=== PATIENT | male | born 1955 | race Two or more races ===

== ENCOUNTER 2020-01-18 10:14 | Outpatient (REF) | payer MEDICARE, MEDICAID, SELFPAY | END 2020-01-18 10:15 | disposition home or self-care (01) | LOC: HO.LAB 10:14 | PROVIDERS: PCP Nurse Practitioner Family; Visit Provider Internal Medicine | DX: Z20.828 Contact with and (suspected) exposure to other viral communicable diseases (principal) | CPT/HCPCS: 87635 ==

== ENCOUNTER 2020-01-23 08:56 | Day surgery (SDC) | payer MEDICARE, MEDICAID, SELFPAY ==
[2020-01-16 11:27] VITALS: BMI 27.5
--- NOTE | 2020-01-18 09:01 | HO.ANESPROP2 ---
Documented by User: Marquita Meyers 01/22/20 12:54 HPI - Anesthesia Eval Consult details Narrative: 64yo M for EGD and Colonoscopy: GERD, screening 01/21/20: Pt reported contact with COVID + family member. [place] [facility] [place]. Has continued to have contact with COVID + family. Per Leta, pt to be re-tested DOS. Ordered. [facility] Past Medical History Medical History (Updated 01/23/20 @ 12:40 by Sandy Orourke) Asthma Back pain Diabetes Elevated cholesterol GERD (gastroesophageal reflux disease) HTN (hypertension) Hx of renal calculi Sleep apnea Surgical History Surgical History H/O colonoscopy History of esophagogastroduodenoscopy (EGD) Social History Social History Smoking Status: Never smoker Use of substances other than those prescribed or required for medical reasons: No Advance Directives Information Provided: No Recently lost weight without trying: No Meds Allergies Allergy/AdvReac Type Severity Reaction Status Date / Time oxycodone [From PERCOCET] Allergy Intermediate ITCHING, Verified 01/16/20 11:32 itch mercury spill clean-up kit Allergy Unknown Unknown Uncoded 01/16/20 11:32 Home Medications Medication Instructions Recorded Confirmed Type allopurinol 300 mg PO DAILY 01/16/20 01/16/20 History amlodipine 5 mg PO DAILY 01/16/20 01/16/20 History aspirin 81 mg PO DAILY 01/16/20 01/16/20 History atorvastatin 80 mg PO BEDTIME 01/16/20 01/16/20 History docusate sodium 100 mg PO DAILY 01/16/20 01/16/20 History fluticasone propion-salmeterol 1 inh INHALATION BID 01/16/20 01/16/20 History [Advair Diskus] insulin detemir U-100 [Levemir 6 unit SUBCUT BID 01/16/20 01/16/20 History Flexpen] lisinopril-hydrochlorothiazide 1 tab PO DAILY 01/16/20 01/16/20 History loratadine 10 mg PO DAILY 01/16/20 01/16/20 History metformin 1,000 mg PO QPM 01/16/20 01/16/20 History omeprazole 20 mg PO BID 01/16/20 01/16/20 History tamsulosin 0.4 mg PO BEDTIME 01/16/20 01/16/20 History Exam Exam Date and Time: January 18, 2020 0901 Height,Weight and Vital Signs: Height 5 ft 3 in Weight 70.5 kg Pertinent Lab Results Pertinent Lab Results: Laboratory Tests 09/14/19 09/14/19 17:43 17:43 WBC 10.3 Hgb 15.2 Hct 45.4 Plt Count 285 Sodium 139 Potassium 4.3 Chloride 105 BUN 23 H Creatinine 0.80 Assessment and Plan Assessment Anesthesia Assessment: Chart Reviewed Documented by User: Sandy Orourke 01/23/20 12:40 [facility] Past Medical History Medical History (Updated 01/23/20 @ 12:40 by Sandy Orourke) Asthma Back pain Diabetes Elevated cholesterol GERD (gastroesophageal reflux disease) HTN (hypertension) Hx of renal calculi Sleep apnea Family History Family history of problems with anesthesia: No Surgical History Surgical History H/O colonoscopy History of esophagogastroduodenoscopy (EGD) History of Problems with Anesthesia: No Social History Social History Smoking Status: Never smoker Use of substances other than those prescribed or required for medical reasons: No Advance Directives Information Provided: No Recently lost weight without trying: No Meds Allergies Allergy/AdvReac Type Severity Reaction Status Date / Time oxycodone [From PERCOCET] Allergy Intermediate ITCHING, Verified 01/16/20 11:32 itch mercury spill clean-up kit Allergy Unknown Unknown Uncoded 01/16/20 11:32 Home Medications Medication Instructions Recorded Confirmed Type allopurinol 300 mg PO DAILY 01/16/20 01/16/20 History amlodipine 5 mg PO DAILY 01/16/20 01/16/20 History aspirin 81 mg PO DAILY 01/16/20 01/16/20 History atorvastatin 80 mg PO BEDTIME 01/16/20 01/16/20 History docusate sodium 100 mg PO DAILY 01/16/20 01/16/20 History fluticasone propion-salmeterol 1 inh INHALATION BID 01/16/20 01/16/20 History [Advair Diskus] insulin detemir U-100 [Levemir 6 unit SUBCUT BID 01/16/20 01/16/20 History Flexpen] lisinopril-hydrochlorothiazide 1 tab PO DAILY 01/16/20 01/16/20 History loratadine 10 mg PO DAILY 01/16/20 01/16/20 History metformin 1,000 mg PO QPM 01/16/20 01/16/20 History omeprazole 20 mg PO BID 01/16/20 01/16/20 History tamsulosin 0.4 mg PO BEDTIME 01/16/20 01/16/20 History Exam Height,Weight and Vital Signs: Vital Signs Temp Pulse Resp BP Pulse Ox 01/23/20 11:40 97.4 F 67 16 129/86 94 Pertinent Lab Results Pertinent Lab Results: 01/23/20 09:20 SARS COV2 PCR INHOUSE Stat 01/23/20 11:24 Glucose, Whole Blood Routine 01/23/20 11:42 Lidocaine HCl 2 % MPF [Xylocaine 2 % MPF] 5 ml .ROUTE .STK-MED ONE propofoL [Diprivan] 200 mg IVPUSH .STK-MED ONE Laboratory Last Values POC Glucose 155 mg/dL (60-115) H 01/23/20 11:24 Coronavirus (PCR) NEGATIVE (Negative) 01/23/20 09:20 Airway Mallampati Class: III TM Dist: >3cm Neck ROM: Full Partial: Upper Heart: RRR Lungs: CTAB Assessment and Plan Assessment Anesthesia Assessment: Anesthesia Plan Discussed and Chart Reviewed Final Anesthetic Review NPO: Yes ASA Class: III Final Preanesthetic Review: No Changes in Pt Med Stat, Meds/Allgs Chart Reviewed, Consent Obtained/Reviewed and Anes Risks/Benef Reviewed Patient Risk: Intermediate Procedure Risk: Low Anesthetic Plan Anesthetic Plan: MAC: Disposition: Standard PACU
[2020-01-23 10:24] LABS: SARS COV2 PCR INHOUSE NEGATIVE (Negative)
[2020-01-23 11:27] LABS: Glucose, Whole Blood 155 mg/dL (60-115)
[2020-01-23 11:40] VITALS: BP 129/86; PULSE 67; RESP 16; TEMP 36.3; O2SAT 94
[2020-01-23] MEDS: Lactated Ringers 1,000 ML 100 ML IVCONT (11:47)
--- NOTE | 2020-01-23 12:31 | MHC.SHP ---
Pre-Procedural Eval Section A The patient is an INPATIENT: No The History & Physical has been completed within 30 days and I have reviewed it.: No Section B Chief Complaint: Gerd, Screening Details of Present Illness: Colon cancer screening, FH of colon cancer, chronic constipation Relevant Social History: None Present Medications: see Short Stay Collaborative assessment Medical History: Significant History ( Allergic rhinitis. Hypertension. Diabetes mellitus type 2. Asthma, moderate persistant without complication. obstructive sleep apnea (LILIANA) on CPAP. Dyslipidemia. GERD. Rectal bleeding. GERD (gastroesophageal reflux disease). Constipat) History of Previous Operations: Relevant previous surgery/procedure and date(s) (EGD & Colonoscopy-int/ ext hemorrhoids ( [facility] reports on file)- Dr. Barnard 05/2009) Allergies: Allergies Allergy/AdvReac Type Severity Reaction Status Date / Time oxycodone [From PERCOCET] Allergy Intermediate ITCHING, Verified 01/16/20 11:32 itch mercury spill clean-up kit Allergy Unknown Unknown Uncoded 01/16/20 11:32 Review of Systems Sugical H&P ROS: Negative: Constitution, Cardiovascular and Respiratory and Yes, Specify: Gastrointestinal (constipation) Exam Surgical H&P Exam: Normal: Heart, Normal: Lungs, Normal: Extremities and Normal: Abdomen Plan Diagnosis/Plan: Unchanged Patient has been examined and remains a candidate for the planned procedure
--- NOTE | 2020-01-23 12:44 | P.BOP_ITS ---
Brief Operative Note Date of procedure: 01/23/20 Pre-op diagnosis: Colon cancer screening, FH of colon cancer, GERD. Post-op diagnosis: other (GERD, Hiatal hernia, Gastritis, colon polyps, diverticulosis, hemorrhoids) Procedure: FLEXIBLE TRANSORAL UPPER GASTROINTESTINAL ENDOSCOPY WITH BIOPSIES AND COLONOSCOPY TILL CECUM WITH BIOPSIES AND SNARE POLYPECTOMY UPPER ENDOSCOPY WITH BIOPSIES Consent: Indications for the procedure and potential complications of bleeding, perforation, reaction to medications and missed diagnosis were discussed with the patient and informed consent was obtained. Instrument: Olympus GIF H 190 mid size upper endoscope Monitoring: Vital signs and clinical assessment, continuous EKG monitoring, Pulse oximetry, Carbon Dioxide monitoring and blood pressure monitoring were done throughout the procedure. Procedure: The patient was placed in the left lateral decubitis position and pre-procedure medications were administered and a bite block was placed. The endoscope was inserted into the mouth and advanced under direct vision to the third part of duodenum. A careful inspection was made as the upper endoscope was withdrawn including a retroflexed examination of the proximal stomach; Findings and interventions are described below. Findings: Larynx: Normal Esophagus: GE junction at 34 cms, small hiatal hernia 34 to 36 cms. No esophagitis. Irregular Z line - biopsied to check for Barretts. Stomach: Minimal gastric erythema. Biopsies were obtained. Grade 2 flap valve on retroflexed examination of the cardia. Duodenum: Normal bulb and descending duodenum Intervention: Biopsies as noted above COLONOSCOPY TILL CECUM WITH BIOPSIES AND SNARE POLYPECTOMY AND SUBMUCOSAL INJECTION Consent: Indications for the procedure and potential complications of bleeding, perforation, reaction to medications and missed diagnosis were discussed with the patient and informed consent was obtained. Instrument: Olympus PCF H 190 L variable stiffness pediatric colonoscope Monitoring: Vital signs and clinical assessment, intermittent blood pressure monitoring, continuous EKG monitoring, Pulse oximetry and Carbon Dioxide monitoring were done throughout the procedure. Colon withdrawl time was 27 minutes. Procedure: The patient was placed in the left lateral decubitis position and pre-procedure medications were administered. After a digital rectal examination of the ano-rectum, the video colonoscope was inserted into the rectum and advanced through the colon to the cecum. The colonoscope was slowly withdrawn in a retrograde panoramic fashion and the colon mucosa was carefully examined including a retroflexed view of the rectum. Findings and interventions are described below. Procedure Difficulty: Without difficulty Findings: Terminal Ileum: Not evaluated Cecum: A 4-5 mm flat polyp raised with 2 cc of Orise solution and removed with a cold bx. Ascending Colon: A 4-5 mm sessile polyp removed with a cold bx. Transverse Colon: A 6-7 mm sessile polyp removed with a cold snare. Descending Colon: Moderate diverticulosis Sigmoid Colon: A 5-6 mm sessile polyp removed with a cold snare and moderate diverticulosis Rectum: Normal Ano-rectum: Large internal hemorrhoids Colon preparation: good after copious irrigation Impression and Post Procedure Diagnosis: Endoscopy Findings: ESOPHAGUS: GE junction at 34 cms, small hiatal hernia 34 to 36 cms. No esophagitis. Irregular Z line with ? 1 cms tongue of possible Barretts - biopsied. STOMACH: Minimal gastritis. Colonoscopy Findings: Four small polyps removed Moderate diverticulosis seen in the left colon Large hemorrhoids on retroflexed exam. Plan: Await pathology results Patient has an appointment on 03/14/20 in the [facility] with Gerry Moraes M.D.-. Repeat Colonoscopy interval based on path results - in 3-5 years if polyps are adenomatous and 10 years if polyps are hyperplastic. Above findings were reviewed with the patient and colon polyps and diverticulosis handouts were given in the discharge area Surgeon: Gerry Moraes MD Anesthesia: MAC (Dr Person) Inventory Control Associate: Zoila Bliss Estimated blood loss (mL): 0 Pathology: other (A. Gastric antrum, B. Distal esophagus, C. Cecal polyp x 1, D. AC polyp x 1, E. TC polyp x 1, F. SC polyp x 1) Condition: stable Disposition: PACU
[2020-01-23 13:48] VITALS: BP 132/87; PULSE 71; RESP 18; TEMP 37.1; O2SAT 98
[2020-01-23 14:03] VITALS: BP 141/78; PULSE 62; RESP 14; O2SAT 97
--- NOTE | 2020-01-23 14:45 | HO.POSTANES ---
Post Anesthesia Evaluation Post Anesthesia Evaluation Vital Signs: Vital Signs Temp Pulse Resp BP Pulse Ox 01/23/20 14:03 98.8 F 62 14 141/78 H 97 01/23/20 13:48 98.8 F 71 18 132/87 98 01/23/20 11:40 97.4 F 67 16 129/86 94 Anesthesia: Monitored Mental Status: Awake Pain Control: Satisfactory Nausea/Vomiting: None Hydration: Adequate Anesthesia-Related Issues: No Anes. Related Issues
== END 2020-01-23 15:08 | disposition home or self-care (01) ==
PROVIDERS: Nurse Practitioner; PCP Nurse Practitioner Family; Visit Provider Internal Medicine Gastroenterology
PROC: (CPT 45385; principal; 2020-01-23 11:50)
DX: Z12.11 Encounter for screening for malignant neoplasm of colon (principal); Z80.0 Family history of malignant neoplasm of digestive organs; D12.0 Benign neoplasm of cecum; D12.2 Benign neoplasm of ascending colon; D12.3 Benign neoplasm of transverse colon; D12.5 Benign neoplasm of sigmoid colon; K57.30 Diverticulosis of large intestine without perforation or abscess without bleeding; K21.00 Gastro-esophageal reflux disease with esophagitis, without bleeding; K59.09 Other constipation; K29.50 Unspecified chronic gastritis without bleeding; K44.9 Diaphragmatic hernia without obstruction or gangrene; I10 Essential (primary) hypertension; K64.8 Other hemorrhoids; K64.4 Residual hemorrhoidal skin tags; Z20.828 Contact with and (suspected) exposure to other viral communicable diseases; G47.33 Obstructive sleep apnea (adult) (pediatric); J45.40 Moderate persistent asthma, uncomplicated; J30.9 Allergic rhinitis, unspecified; E78.5 Hyperlipidemia, unspecified; Z79.51 Long term (current) use of inhaled steroids; Z99.89 Dependence on other enabling machines and devices; Z88.8 Allergy status to other drugs, medicaments and biological substances; Z79.899 Other long term (current) drug therapy
CPT/HCPCS: 45385; 45380; 43239; 82947; 87635; 88305; 88342; J2765

== ENCOUNTER 2020-03-06 05:26 | Emergency (ER) | payer MEDICARE, MEDICAID, SELFPAY ==
[2020-03-06 05:37] VITALS: BP 151/65; PULSE 55; RESP 20; TEMP 36.4; O2SAT 100; BMI 29.2
--- NOTE | 2020-03-06 06:26 | ED_ITS ---
HPI - Abdominal Pain General Chief Complaint: Abdominal Pain Stated Complaint: ABD PAIN Time Seen by Provider: 03/06/20 06:25 Source: patient Mode of arrival: ambulatory Limitations: no limitations History of Present Illness HPI narrative: This 64-year-old male with history of diabetes who presents with lower abdominal pain that started at midnight and woke him from sleep it is not associated with fever, chills, nausea, vomiting, and patient has been able to urinate without difficulties. He denies any previous abdominal surgeries or urinary pain/ burning / frequency. Related Data Home Medications Medication Instructions Recorded Confirmed allopurinol 300 mg PO DAILY 01/16/20 03/06/20 amlodipine 5 mg PO DAILY 01/16/20 03/06/20 aspirin 81 mg PO DAILY 01/16/20 03/06/20 atorvastatin 80 mg PO BEDTIME 01/16/20 03/06/20 docusate sodium 100 mg PO DAILY 01/16/20 03/06/20 fluticasone propion-salmeterol 1 inh INHALATION BID 01/16/20 03/06/20 [Advair Diskus] insulin detemir U-100 6 unit SUBCUT BID 01/16/20 03/06/20 lisinopril-hydrochlorothiazide 1 tab PO DAILY 01/16/20 03/06/20 loratadine 10 mg PO DAILY 01/16/20 03/06/20 metformin 1,000 mg PO QPM 01/16/20 03/06/20 omeprazole 20 mg PO BID 01/16/20 03/06/20 tamsulosin 0.4 mg PO BEDTIME 01/16/20 03/06/20 Allergies Allergy/AdvReac Type Severity Reaction Status Date / Time oxycodone [From PERCOCET] Allergy Intermediate ITCHING, Verified 03/06/20 05:36 itch mercury spill clean-up kit Allergy Unknown Unknown Uncoded 01/16/20 11:32 Review of Systems Review of Systems Pertinent positives and negatives as stated in HPI 10 point review of systems is otherwise negative. Physical Exam Vital Signs: Vital Signs: Last Vital Signs Temp 97.6 F 03/06/20 05:37 Pulse 55 03/06/20 05:37 Resp 20 03/06/20 05:37 BP 151/65 H 03/06/20 05:37 Pulse Ox 100 03/06/20 05:37 Body Mass Index 29.2 VITAL SIGNS: Reviewed. GENERAL: Well developed, well nourished, moderate distress. HEAD: Normocephalic/atraumatic, EYES: PERRLA, EOMI intact without pain, no nystagmus/pallor/icterus noted EARS: Ext canals without abnormality, TMs non-bulging and non-erythematous NOSE: Nares patent bilateral OROPHARYNX: no oral lesions noted, posterior pharynx clear and non-erythematous without noted tonsillar enlargement/erythema/exudates NECK: Supple, no adenopathy LUNGS: Normal breath sounds. No adventitious sounds or accessory muscle use. SpO<100> CARDIOVASCULAR: Regular rate and rhythm without noted murmurs, no JVD or lower extremity edema. ABDOMEN: Soft, Tender across lower abdomen without rebound, non-distended with bowel sounds. No rigidity. No guarding. No palpable masses or hernias noted MUSCULOSKELETAL: No tenderness, deformities, or effusions noted on gross inspection. EXTREMITIES: No cyanosis, clubbing or edema. SKIN: Inspection of the skin reveals no rashes, ulcerations, jaundice, pallor, or petechiae. NEUROLOGIC: Alert and oriented x 4. Strength and sensation to light touch were grossly intact x 4. Course Course Course Narrative: This is a 64-year-old male with history and clinical presentation suggestive of possible renal colic, diverticulitis, appendicitis, and doubt UTI. Signed out to Dr Galvan. MDM - Abdominal Pain Lab Data Result diagrams: 03/06/20 06:27 03/06/20 06:27 Labs: Lab Results 03/06/20 03/06/20 03/06/20 Range/Units 06:27 06:27 06:27 WBC 10.8 (4.8-10.8) X10*3/uL RBC 5.41 (4.60-5.80) X10*6/uL Hgb 15.5 (14.0-18.0) g/dl Hct 46.5 (42-52) % MCV 86.0 (80-98) fL MCH 28.7 (27.0-33.0) pg MCHC 33.3 (31.0-36.0) g/dl RDW 12.4 (11.0-16.0) % Plt Count 302 (160-400) X10*3/uL MPV 10.6 (9.4-12.4) fL Immature Gran % (Auto) 1.1 H (0.0-0.4) % Neut % (Auto) 43.4 L (45-73) % Lymph % (Auto) 43.3 H (20-40) % [place] % (Auto) 7.2 (2-11) % Eos % (Auto) 3.9 (0-4) % Baso % (Auto) 1.1 (0-2) % Lymph # (Auto) 4.7 (1.2-4.9) X10*3/uL [place] # (Auto) 0.8 (0.1-1.2) X10*3/uL Eos # (Auto) 0.4 (0.0-0.4) X10*3/uL Baso # (Auto) 0.1 (0.0-0.2) X10*3/uL Abs Immat Gran (auto) 0.12 H (0.00-0.03) X10*3/uL Absolute Neuts (auto) 4.7 (2.0-8.3) X10*3/uL Absolute Nucleated RBC 0.000 (0.0-0.012) X10*3/uL Nucleated RBC % (auto) 0.0 (0.0-0.2) /100WBC PT 12.2 (10.8-13.0) SEC INR 1.0 (0.9-1.1) APTT 29.2 (24.1-38.0) SEC Hold Blue Top SEE NOTE Sodium (135-145) mmol/L Potassium (3.3-5.1) mmol/l Chloride (96-108) mmol/L Carbon Dioxide (22-29) mmol/L Anion Gap (12-20) BUN (9-16) mg/dL Creatinine (0.5-1.4) mg/dL Estim Creat Clear Calc Estimated GFR Random Glucose (60-115) mg/dL Calcium (8.4-10.2) mg/dL Total Bilirubin (0.0-1.0) mg/dL AST (5-37) U/L ALT (0-40) U/L Alkaline Phosphatase (39-117) U/L Total Protein (6.5-8.0) g/dL Albumin (3.5-5.0) g/dL Lipase 57 (8-78) U/L 03/06/20 Range/Units 06:27 WBC (4.8-10.8) X10*3/uL RBC (4.60-5.80) X10*6/uL Hgb (14.0-18.0) g/dl Hct (42-52) % MCV (80-98) fL MCH (27.0-33.0) pg MCHC (31.0-36.0) g/dl RDW (11.0-16.0) % Plt Count (160-400) X10*3/uL MPV (9.4-12.4) fL Immature Gran % (Auto) (0.0-0.4) % Neut % (Auto) (45-73) % Lymph % (Auto) (20-40) % [place] % (Auto) (2-11) % Eos % (Auto) (0-4) % Baso % (Auto) (0-2) % Lymph # (Auto) (1.2-4.9) X10*3/uL [place] # (Auto) (0.1-1.2) X10*3/uL Eos # (Auto) (0.0-0.4) X10*3/uL Baso # (Auto) (0.0-0.2) X10*3/uL Abs Immat Gran (auto) (0.00-0.03) X10*3/uL Absolute Neuts (auto) (2.0-8.3) X10*3/uL Absolute Nucleated RBC (0.0-0.012) X10*3/uL Nucleated RBC % (auto) (0.0-0.2) /100WBC PT (10.8-13.0) SEC INR (0.9-1.1) APTT (24.1-38.0) SEC Hold Blue Top Sodium 140 (135-145) mmol/L Potassium 4.7 (3.3-5.1) mmol/l Chloride 104 (96-108) mmol/L Carbon Dioxide 28 (22-29) mmol/L Anion Gap 13 (12-20) BUN 20 H (9-16) mg/dL Creatinine 0.86 (0.5-1.4) mg/dL Estim Creat Clear Calc 77.6 Estimated GFR > 60 Random Glucose 203 H (60-115) mg/dL Calcium 9.3 (8.4-10.2) mg/dL Total Bilirubin 0.6 (0.0-1.0) mg/dL AST 18 (5-37) U/L ALT 34 (0-40) U/L Alkaline Phosphatase 68 (39-117) U/L Total Protein 7.1 (6.5-8.0) g/dL Albumin 4.2 (3.5-5.0) g/dL Lipase (8-78) U/L Discharge Plan Discharge Prescriptions: No Action fluticasone propion-salmeterol [Advair Diskus] 250-50 mcg/dose Blister With Device 1 inh INHALATION BID RF: 0 atorvastatin 80 mg Tablet 80 mg PO BEDTIME RF: 0 amlodipine 5 mg Tablet 5 mg PO DAILY RF: 0 tamsulosin 0.4 mg Capsule 0.4 mg PO BEDTIME RF: 0 metformin 1,000 mg Tablet 1,000 mg PO QPM RF: 0 docusate sodium 100 mg Capsule 100 mg PO DAILY RF: 0 omeprazole 20 mg Capsule,Delayed Release(Dr/Ec) 20 mg PO BID RF: 0 lisinopril-hydrochlorothiazide 20-25 mg Tablet 1 tab PO DAILY RF: 0 allopurinol 300 mg Tablet 300 mg PO DAILY RF: 0 aspirin 81 mg Tablet 81 mg PO DAILY RF: 0 loratadine 10 mg Tablet 10 mg PO DAILY RF: 0 insulin detemir U-100 100 unit/mL (3 mL) Insulin Pen 6 unit SUBCUT BID RF: 0 PMFSH Past Medical History Source: nursing notes reviewed Medical History Asthma Back pain Diabetes Diverticulosis Elevated cholesterol GERD (gastroesophageal reflux disease) GERD without esophagitis Hemorrhoids Hiatal hernia without gangrene or obstruction HTN (hypertension) Hx of renal calculi Sleep apnea Surgical History H/O colonoscopy History of esophagogastroduodenoscopy (EGD) Social History Social History Smoking Status: Never smoker Use of substances other than those prescribed or required for medical reasons: No Advance Directives: No Advance Directives Information Provided: No
--- NOTE | 2020-03-06 06:31 | CT_ITS ---
EXAMINATION: CT ABDOMEN AND PELVIS WITH CONTRAST CLINICAL INFORMATION: Abdominal pain COMPARISON: September 14, 2019 and July 02, 2018 TECHNIQUE: Multidetector volumetric images were obtained from the superior aspect of the liver through the pubic symphysis following administration 85 mL of Omnipaque 350 intravenous contrast. Sagittal and coronal reformatted images were obtained on the technologist's workstation. Oral contrast: No This CT examination was performed using dose optimization techniques as appropriate, variously including the following: *Automated exposure control *Adjustment of mA and/or kV according to patient size (this includes techniques or standardized protocols for targeted exams where dose is matched to indication/reason for exam; i.e. extremities or head) *Use of iterative reconstruction technique DLP: 492.00 mGy-cm FINDINGS: LUNG BASES: The visualized lung bases are unremarkable. No pleural or pericardial effusion. LIVER, GALLBLADDER, AND BILIARY TREE: No focal mass or intrahepatic bile duct dilatation is present. There is diffusely diminished density within the liver consistent with fatty infiltration. Cholelithiasis is present without evidence of acute cholecystitis. PANCREAS: Unremarkable. SPLEEN: Unremarkable. ADRENAL GLANDS: Unremarkable. KIDNEYS AND URETERS: The left kidney are normal in size, shape, and attenuation. No hydronephrosis, hydroureter, or calculi seen. No significant perinephric stranding. There is mild right hydronephrosis present with a 5 mm obstructing proximal right ureteral calculus. BLADDER: Unremarkable. GASTROINTESTINAL TRACT: No dilated loops of large or small bowel are evident. No free air or free fluid is seen. There is a small amount of nonspecific hazy stranding within the mesentery. No pericolonic inflammatory change. The appendix is visualized and appears unremarkable. ABDOMINAL WALL: No significant hernia is appreciated. LYMPH NODES: No definite lymphadenopathy is appreciated. There is a prominent 1.5 x 1.3 x 0.7 cm lymph node between the gastric body and splenic artery. VASCULAR: Unremarkable. PELVIC VISCERA: Unremarkable. OSSEOUS STRUCTURES: No suspicious destructive bony lesions identified. There is degenerative disc disease seen at the L5-S1 level. CT/CT abdomen pelvis w con IMPRESSION: Mild right hydronephrosis with 5 mm obstructing proximal right ureteral calculus. Cholelithiasis without evidence of acute cholecystitis.
[2020-03-06 06:35] LABS: MANUAL DIFF FLAG NO
[2020-03-06 06:47] LABS: Basophils Absolute Auto 0.1 X10*3/uL (0.0-0.2); Basophils Percent Auto 1.1 % (0-2); Eosinophils Absolute Auto 0.4 X10*3/uL (0.0-0.4); Eosinophils Percent Auto 3.9 % (0-4); Hematocrit 46.5 % (42-52); Hemoglobin 15.5 g/dl (14.0-18.0); Imm Gran Abs Auto 0.12 X10*3/uL (0.00-0.03); Imm Gran Pct Auto 1.1 % (0.0-0.4); Lymphocytes Absolute Auto 4.7 X10*3/uL (1.2-4.9); Lymphocytes Percent Auto 43.3 % (20-40); Mean Corpuscular HGB Conc 33.3 g/dl (31.0-36.0); Mean Corpuscular Hemoglobin 28.7 pg (27.0-33.0); Mean Platelet Volume 10.6 fL (9.4-12.4); Monocytes Absolute Auto 0.8 X10*3/uL (0.1-1.2); Monocytes Percent Auto 7.2 % (2-11); Neutrophils Absolute Auto 4.7 X10*3/uL (2.0-8.3); Neutrophils Percent Auto 43.4 % (45-73); Platelet Count 302 X10*3/uL (160-400); Red Blood Count 5.41 X10*6/uL (4.60-5.80); Red Cell Distribution Width 12.4 % (11.0-16.0); White Blood Count 10.8 X10*3/uL (4.8-10.8)
[2020-03-06 06:54] LABS: Prothrombin Time 12.2 SEC (10.8-13.0)
[2020-03-06 06:57] LABS: Partial Thromboplastin Time 29.2 SEC (24.1-38.0)
[2020-03-06 06:58] LABS: Lipase 57 U/L (8-78)
[2020-03-06 06:59] LABS: Alanine Aminotransferase 34 U/L (0-40); Albumin Level 4.2 g/dL (3.5-5.0); Alkaline Phosphatase 68 U/L (39-117); Anion Gap 13 (12-20); Aspartate Amino Transferase 18 U/L (5-37); Bilirubin Total 0.6 mg/dL (0.0-1.0); Blood Urea Nitrogen 20 mg/dL (9-16); Calcium 9.3 mg/dL (8.4-10.2); Carbon Dioxide 28 mmol/L (22-29); Chloride 104 mmol/L (96-108); Creatinine Clr Calc Pharmacy 77.6; Estimated Glomerular Filt Rate > 60; Glucose Random 203 mg/dL (60-115); Potassium 4.7 mmol/l (3.3-5.1); Sodium 140 mmol/L (135-145); Total Protein 7.1 g/dL (6.5-8.0)
[2020-03-06] MEDS: Ketorolac Tromethamine 15 MG/ML VIAL IVPUSH (07:11)
--- NOTE | 2020-03-06 07:11 | PC.NURSE ---
pt complaining of abd pain, provider aware. medicated per emar.
[2020-03-06] MEDS: iohexoL 350 MG/ML 100 ML INFUS..BTL 85 ML IV (08:52)
[2020-03-06 09:15] VITALS: BP 136/86; PULSE 61; RESP 16; TEMP 36.5; O2SAT 97
[2020-03-06 10:54] LABS: Glucose Urine UA NEG (NEG); Leukocyte Esterase Urine NEG (NEG); Nitrite Urine NEG (NEG); Specific Gravity - Urine <= 1.005 (1.005-1.025); Urine Blood 2+ (NEG); Urine Ketones NEG (NEG); Urine Protein NEG (NEG-TRACE)
[2020-03-06 10:59] LABS: Appearance Urine CLEAR; Color Urine YELLOW
[2020-03-06 11:05] LABS: Squamous Epithelial Cell Urine TRACE /LPF; WBC Urine 0 /HPF (0-4)
[2020-03-06 11:06] LABS: Mucus Urine TRACE /LPF
== END 2020-03-06 11:33 | disposition home or self-care (01) ==
PROVIDERS: Emergency Provider Student in an Organized Health Care Education/Training Program; PCP Nurse Practitioner Family
DX: R10.30 Lower abdominal pain, unspecified (principal); I10 Essential (primary) hypertension; Z79.899 Other long term (current) drug therapy
CPT/HCPCS: 36415; 74177; 80053; 81001; 83690; 85025; 85610; 85730; 96374; 99284; J1885; Q9967

== ENCOUNTER → 2020-03-14 12:12 | Outpatient (BNVA) | payer MEDICARE, MEDICAID, SELFPAY | PROVIDERS: Visit Provider Internal Medicine Gastroenterology | DX: K57.90 Diverticulosis of intestine, part unspecified, without perforation or abscess without bleeding (principal); K64.9 Unspecified hemorrhoids; K21.9 Gastro-esophageal reflux disease without esophagitis; K59.09 Other constipation; Z86.010 Personal history of colon polyps; Z79.899 Other long term (current) drug therapy; Z79.82 Long term (current) use of aspirin; Z79.4 Long term (current) use of insulin | CPT/HCPCS: Q3014 ==

== ENCOUNTER → 2020-04-08 14:22 | Outpatient (BNVA) | payer MEDICARE, MEDICAID, SELFPAY | PROVIDERS: PCP Nurse Practitioner Family; Visit Provider Surgery | DX: Z76.89 Persons encountering health services in other specified circumstances (principal) ==

== ENCOUNTER → 2020-04-11 14:06 | Outpatient (BNVA) | payer MEDICARE, MEDICAID, SELFPAY | PROVIDERS: PCP Nurse Practitioner Family; Visit Provider Surgery | DX: K64.5 Perianal venous thrombosis (principal) | CPT/HCPCS: 46600; 99202 ==

== ENCOUNTER 2020-06-05 13:24 | Outpatient (REF) | payer MEDICARE, MEDICAID, SELFPAY | END 2020-06-05 13:25 | disposition home or self-care (01) | LOC: HO.LAB 13:24 | PROVIDERS: Visit Provider Internal Medicine | DX: Z20.822 Contact with and (suspected) exposure to COVID-19 (principal) | CPT/HCPCS: 36415; C9803; U0003; U0005 ==

== ENCOUNTER 2020-06-11 09:13 | Outpatient (REF) | payer MEDICARE, MEDICAID, SELFPAY | END 2020-06-11 09:14 | disposition home or self-care (01) | LOC: HO.LAB 09:13 | PROVIDERS: Visit Provider Internal Medicine | DX: Z20.822 Contact with and (suspected) exposure to COVID-19 (principal) | CPT/HCPCS: 36415; C9803; U0003; U0005 ==

== ENCOUNTER → 2020-10-03 09:45 | Outpatient (BNVA) | payer MEDICARE, MEDICAID, SELFPAY | PROVIDERS: PCP Nurse Practitioner Family; Referring Provider Internal Medicine; Visit Provider Internal Medicine Gastroenterology | DX: K59.09 Other constipation (principal); K57.90 Diverticulosis of intestine, part unspecified, without perforation or abscess without bleeding; K21.9 Gastro-esophageal reflux disease without esophagitis; K44.9 Diaphragmatic hernia without obstruction or gangrene; I10 Essential (primary) hypertension; G47.33 Obstructive sleep apnea (adult) (pediatric); Z99.89 Dependence on other enabling machines and devices; Z86.010 Personal history of colon polyps; Z88.5 Allergy status to narcotic agent; Z91.048 Other nonmedicinal substance allergy status; Z79.84 Long term (current) use of oral hypoglycemic drugs; Z79.899 Other long term (current) drug therapy | CPT/HCPCS: 99212 ==

== ENCOUNTER → 2021-02-03 10:16 | Outpatient (BNVA) | payer MEDICARE, MEDICAID, SELFPAY | PROVIDERS: Visit Provider Internal Medicine Gastroenterology | DX: K59.09 Other constipation (principal); K64.9 Unspecified hemorrhoids; K57.90 Diverticulosis of intestine, part unspecified, without perforation or abscess without bleeding; K21.9 Gastro-esophageal reflux disease without esophagitis; K55.9 Vascular disorder of intestine, unspecified; Z86.010 Personal history of colon polyps | CPT/HCPCS: 99212 ==

== ENCOUNTER → 2021-08-21 09:29 | Outpatient (BNVA) | payer MEDICARE, MEDICAID, SELFPAY | PROVIDERS: Referring Provider Internal Medicine; Visit Provider Internal Medicine Gastroenterology | DX: K59.09 Other constipation (principal); K64.9 Unspecified hemorrhoids; K57.90 Diverticulosis of intestine, part unspecified, without perforation or abscess without bleeding; K44.9 Diaphragmatic hernia without obstruction or gangrene; K21.9 Gastro-esophageal reflux disease without esophagitis | CPT/HCPCS: 99212 ==

== ENCOUNTER 2022-09-21 22:16 | Emergency (ER) | payer MEDICARE, MEDICAID, SELFPAY ==
--- NOTE | ~2022-09-21 | XR_ITS ---
EXAMINATION: XR KNEE, RIGHT CLINICAL INFORMATION: Painful COMPARISON: None available. TECHNIQUE: Four views of the right knee. FINDINGS: There is mild reduction in patellofemoral compartment joint space. The medial and lateral compartment joint space is preserved. No visible acute fracture, dislocation or subluxation seen. XR/XR knee RT 2V IMPRESSION: Mild degenerative changes patellofemoral compartment. Otherwise unremarkable right knee exam. There is no major change compared to previous study 03/20/2016.
[2022-09-21 23:08] VITALS: BP 123/73; PULSE 73; RESP 20; TEMP 36.7; O2SAT 98; BMI 30.1
[2022-09-21 23:36] LABS: Hematocrit 44.7 % (42.0-52.0); Hemoglobin 15.3 g/dl (14.0-18.0); Mean Corpuscular HGB Conc 34.2 g/dl (31.0-36.0); Mean Corpuscular Hemoglobin 28.5 pg (27.0-33.0); Mean Corpuscular Volume 83.2 fL (80.0-98.0); Mean Platelet Volume 10.3 fL (9.4-12.4); Platelet Count 330 X10*3/uL (160-400); Red Blood Count 5.37 X10*6/uL (4.60-5.80); Red Cell Distribution Width 12.6 % (11.0-16.0); White Blood Count 13.3 X10*3/uL (4.8-10.8)
[2022-09-21 23:56] LABS: Alanine Aminotransferase 18 U/L (0-40); Albumin Level 4.1 g/dL (3.5-5.0); Alkaline Phosphatase 88 U/L (39-117); Anion Gap 17 (12-20); Aspartate Amino Transferase 12 U/L (5-37); Bilirubin Total 0.5 mg/dL (0.0-1.0); Blood Urea Nitrogen 17 mg/dL (9-16); Calcium 9.5 mg/dL (8.4-10.2); Carbon Dioxide 21 mmol/L (22-29); Chloride 104 mmol/L (96-108); Creatinine Clr Calc Pharmacy 55.5; Estimated Glomerular Filt Rate > 60; Sodium 138 mmol/L (135-145); Total Protein 7.7 g/dL (6.5-8.0)
[2022-09-22 00:02] LABS: Glucose Random 357 mg/dL (60-115)
--- NOTE | 2022-09-22 00:03 | PC.NURSE ---
critical lab reported to this RN By PRINCE Portillo, blood glucose 357
== END 2022-09-22 01:49 | disposition left against medical advice (07) ==
PROVIDERS: Emergency Provider Emergency Medicine
DX: M25.561 Pain in right knee (principal); Z79.899 Other long term (current) drug therapy
CPT/HCPCS: 36415; 73560; 80053; 85027; 99281; 99283

== ENCOUNTER 2022-09-29 11:46 | Emergency (ER) | payer MEDICARE, MEDICAID, SELFPAY ==
--- NOTE | ~2022-09-29 | CT_ITS ---
EXAMINATION: CT ABDOMEN AND PELVIS WITH CONTRAST CLINICAL INFORMATION: Right lower quadrant pain COMPARISON: Previous CT of the abdomen and pelvis most recent March 2020 TECHNIQUE: Multidetector volumetric images were obtained from the superior aspect of the liver through the pubic symphysis following administration 85 mL of Omnipaque 350 intravenous contrast. Sagittal and coronal reformatted images were obtained on the technologist's workstation. Oral contrast: Yes This CT examination was performed using dose optimization techniques as appropriate, variously including the following: *Automated exposure control *Adjustment of mA and/or kV according to patient size (this includes techniques or standardized protocols for targeted exams where dose is matched to indication/reason for exam; i.e. extremities or head) *Use of iterative reconstruction technique DLP: 428 mGy-cm FINDINGS: LUNG BASES: The visualized lung bases are unremarkable. LIVER, GALLBLADDER, AND BILIARY TREE: The liver slightly low in attenuation suggestive of mild fatty infiltration. The liver is otherwise normal. No focal liver lesion or biliary duct dilatation. Question small gallstone versus gallbladder wall calcification. PANCREAS: Unremarkable. SPLEEN: Unremarkable. ADRENAL GLANDS: Unremarkable. KIDNEYS AND URETERS: The kidneys are normal in size, shape, and attenuation. No hydronephrosis, hydroureter, or calculi seen. No perinephric stranding. BLADDER: Not optimally distended. GASTROINTESTINAL TRACT: The small and large bowel are unremarkable. The appendix is unremarkable. ABDOMINAL WALL: No significant hernia is appreciated. LYMPH NODES: Small, small bowel mesentery lymph nodes and mild adjacent fat stranding. This is similar to previous exam. VASCULAR: Unremarkable. PELVIC VISCERA: Unremarkable. OSSEOUS STRUCTURES: Mild degenerative changes. CT/CT abdomen pelvis w IV con IMPRESSION: No acute findings. Normal-appearing appendix. Question small gallstone versus gallbladder wall calcification. Fleischner guidelines were followed.
[2022-09-29 12:03] VITALS: BP 105/70; PULSE 74; RESP 19; TEMP 36.6; O2SAT 98; BMI 25.7
--- NOTE | 2022-09-29 12:04 | ED.GENADULT ---
HPI - General Adult General Chief complaint: Abdominal Pain Stated complaint: ? Appendicitis Time Seen by Provider: 09/29/22 13:34 Source: patient and collections clerk Mode of arrival: ambulatory Limitations: language barrier History of Present Illness HPI narrative: Patient is a 67 year old assigned male at with a history of GERD presenting to the emergency department today with right lower quadrant abdominal pain. Patient states that he has had right lower quadrant abdominal pain over the last 3 days. Patient denies any dizziness, lightheadedness, nausea, vomiting, fever, chills, blurry vision, double vision, loss of vision, chest pain, difficulty breathing, shortness of breath, back pain, night sweats, pain with urination, increased urinary frequency, increased urinary urgency, blood in his urine or stool, syncope or a near syncopal episode, recent trauma or falls, bowel incontinence, bladder incontinence, bowel retention, bladder retention, or any other complaints at this time. Onset (ago): day(s) (3) Location: abdomen and right Radiation: non-radiation Severity: mild Severity scale (1-10): 4 Quality: aching and dull Pain Consistency: constant Relieving factors: none Exacerbating factors: none Associated symptoms: denies other symptoms Treatments prior to arrival: none Related Data Home Medications Medication Instructions Recorded Confirmed allopurinol 300 mg tablet 300 mg PO DAILY 01/16/20 02/03/21 aspirin 81 mg tablet 81 mg PO DAILY 01/16/20 02/03/21 atorvastatin 80 mg tablet 80 mg PO BEDTIME 01/16/20 02/03/21 docusate sodium 100 mg capsule 100 mg PO DAILY 01/16/20 02/03/21 fluticasone 250 mcg-salmeterol 50 1 inh inhalation BID 01/16/20 02/03/21 mcg/dose blistr powdr for inhalation (Advair Diskus) insulin detemir U-100 100 unit/mL 6 unit subcut BID 01/16/20 02/03/21 (3 mL) subcutaneous pen lisinopril 20 1 tab PO DAILY 01/16/20 02/03/21 mg-hydrochlorothiazide 25 mg tablet loratadine 10 mg tablet 10 mg PO DAILY 01/16/20 02/03/21 metformin 1,000 mg tablet 1,000 mg PO QPM 01/16/20 02/03/21 omeprazole 20 mg capsule,delayed 20 mg PO BID 01/16/20 02/03/21 release albuterol sulfate 90 mcg/actuation inhalation 04/11/20 02/03/21 aerosol inhaler fluticasone propionate 50 2 spray intranasal DAILY PRN 04/11/20 02/03/21 mcg/actuation nasal spray,suspension amlodipine 10 mg tablet 10 mg PO QAM 08/21/21 cholecalciferol (vitamin D3) 50 50 mcg PO QAM 08/21/21 mcg (2,000 unit) capsule finasteride 5 mg tablet 5 mg PO DAILY 08/21/21 Previous Rx's Medication Instructions Recorded naproxen 500 mg tablet (Naprosyn) 500 mg PO BID #20 tabs 03/06/20 tamsulosin 0.4 mg capsule (Flomax) 0.4 mg PO DAILY #10 caps 03/06/20 Allergies Allergy/AdvReac Type Severity Reaction Status Date / Time oxycodone [From PERCOCET] Allergy Intermediate ITCHING, Verified 09/29/22 12:03 itch mercury spill clean-up kit Allergy Unknown Unknown Uncoded 09/29/22 12:03 Review of Systems Constitutional: Constitutional: Reports no additional constitutional complaints, Denies chills, Denies fever(s) and Denies night sweats Eyes: Eyes: Reports no additional eye complaints, Denies blurry vision, Denies change in vision, Denies diplopia, Denies eye discharge, Denies loss of vision and Denies eye pain ENT: Denies dizziness Cardiovascular: Cardiovascular: Reports no additional cardiovascular complaints, Denies chest pain, Denies lightheadedness, Denies Loss of Consciousness and Denies dyspnea Respiratory: Respiratory: Reports no additional respiratory complaints and Denies dyspnea Gastrointestinal: Gastrointestinal: Reports no additional gastrointestinal complaints, Reports abdominal pain (right lower quadrant), Denies melena, Denies hematochezia, Denies change in bowel habits and Denies change in stool character Genitourinary: Genitourinary: Reports no additional male genitourinary complaints, Denies hematuria, Denies oliguria, Denies difficulty urinating, Denies dysuria, Denies urinary frequency, Denies urinary hesitancy, Denies urinary incontinence and Denies urinary urgency Musculoskeletal: Musculoskeletal: Reports no additional musculoskeletal complaints, Denies numbness and Denies tingling Neurologic: Denies dizziness, Denies loss of vision, Denies numbness and Denies tingling Psychiatric: Psychiatric: Reports no additional psychiatric complaints Endocrine: Endocrine: Reports no additional endocrine complaints Hematologic/Lymphatic: Hematologic/Lymphatic: Reports no additional hematologic/lymphatic complaints Allergic/Immunologic: Allergic/Immunologic: Reports no additional allergic/immunologic complaints [facility] Past Medical History Attestation statement: The following information was validated with the patient. Source: old records reviewed and nursing notes reviewed Medical History Asthma Back pain Diabetes Diverticulosis Elevated cholesterol GERD (gastroesophageal reflux disease) GERD without esophagitis Hemorrhoids Hiatal hernia without gangrene or obstruction HTN (hypertension) Hx of renal calculi Sleep apnea Thrombosed external hemorrhoid Surgical History H/O colonoscopy History of esophagogastroduodenoscopy (EGD) Family History Family History Father History of cancer of stomach Mother Hx of colon cancer, stage IV Sister Hx of breast cancer Social History Social History Household Members: Spouse and Children Alcohol intake: never Patient Tobacco Use Status: Never used Tobacco Advance Directives: No Physical Exam ED Vital Signs: Vital Signs - 24 hr 09/29/22 12:03 09/29/22 14:17 Temperature 98 F 97.8 F Pulse Rate 74 55 Respiratory Rate 19 18 Blood Pressure 105/70 122/78 Pulse Oximetry 98 98 Oxygen Delivery Method Room Air Room Air BMI result Body Mass Index 25.7 Const General: cooperative, no acute distress, alert and awake Nutritional Appearance: well nourished Orientation/consciousness: patient oriented x3 Limitations: no limitations [facility] Head: Yes normal to inspection and Yes atraumatic Ears: hearing grossly normal bilaterally and external ears normal General nose exam: Normal external nose present, no nasal discharge noted and no epistaxis Face and sinus: Yes normal facial exam, No abrasion and No laceration Mouth: Normal oral and palatal mucosa present, no drooling and no muffled voice Eyes General: appearance normal, both eyes and all related structures Periorbital: periorbital findings normal Eyelids: Yes eyelids normal Conjunctivae: conjunctivae normal Pupils: Equal, round and reactive pupils present EOM: EOMs intact bilaterally Neck Neck: Yes normal visual inspection, Yes full ROM and Yes no lymphadenopathy Chest Chest palpation & inspection: normal inspection of the chest Resp Effort & Inspection: normal respiratory effort and able to speak in complete sentences GI Inspection: Yes normal to inspection Palpation (GI): Soft to palpation, not firm, Tenderness to palpation present (GI) in the RLQ, no guarding and not rigid Neuro General: patient oriented x3 and moves all extremities Cranial nerves: Yes Equal, round and reactive pupils present Cognition (Neuro): normal cognition Motor exam (neuro): 5/5 motor strength present throughout Sensory Exam: Normal double simultaneous stimulation for sensation Coordination: [id number] test normal Extrem General: Yes normal to inspection, Yes full ROM and Yes capillary refill normal Psych Appearance: grossly normal Mental Status: mental status grossly normal Affect: normal affect Attitude: cooperative Thought process: Normal thought process present Thought content: Normal thought content present Insight: Good insight present (Psych) Course Course Course Narrative: This is an RME: Additional HPI, ROS, PE not included below will be deferred to primary provider. Patient is a 67-year-old male with history of diverticulosis, GERD, hiatal hernia presenting to the emergency department with complaint of RLQ abdominal pain for 3 days. Denies nausea, vomiting, diarrhea. Denies fever. Pain is worse with ambulation. Denies prior abdominal surgeries. +McBurney's. Plan: labs, UA, CT Medications Administered Discontinued Medications Generic Name Dose Route Start Last Admin Trade Name Freq PRN Reason Stop Dose Admin Iohexol 100 ml 09/29/22 14:46 09/29/22 14:48 Iohexol 350 Mg/Ml 100 Ml Infus..Btl IV 09/29/22 14:47 85 ml ONCE ONE Administration Medical Decision Making Medical Decision Making [facility] Narrative: Patient is a 67 year old assigned male at with a history of GERD presenting to the emergency department today with right lower quadrant abdominal pain. Patient's physical exam showed right lower quadrant abdominal pain. Patient's blood work showed a mildly elevated WBC count of 12.0 but was otherwise unremarkable. Patient's urine showed no acute process. Patient's abdomen/pelvis CT showed no acute process. I explained my physical exam findings as well as all test results to the patient. I answered all questions asked by the patient. I stressed the importance of the patient taking his medication as prescribed. I stressed the importance of the patient following up with his primary care provider. I stressed the importance of the patient returning to the emergency department immediately if his symptoms were to worsen or if he were to develop any dizziness, shortness of breath, difficulty breathing, chest pain, blurry vision, loss of vision, nausea, vomiting, abdominal pain, fever, chills, back pain, or any other complaints. Patient verbalized agreement and understanding with this treatment plan and discharge. Differential Diagnosis Differential Diagnoses: The differential diagnosis associated with the presentation includes Appendicitis Abdominal pain Diverticulitis Gastroenteritis Viral illness Admission/Observation Consideration of admission/observation: Escalation of care including admission/observation considered Patient would have been admitted to the hospital had his work up had any findings where hospital admission was appropriate and his clinical presentation warranted hospital admission. Lab Data MDM Lab Attestation statement: I reviewed the patient's lab results. My interpretation of these studies and their corresponding values is that they are grossly normal with the exception of the mildly elevated WBC count which could be secondary to a stress reaction. 09/29/22 12:17 09/29/22 12:17 Labs: Lab Results 09/29/22 09/29/22 09/29/22 Range/Units 12:17 12:17 13:45 WBC 12.0 H (4.8-10.8) X10*3/uL RBC 5.81 H (4.60-5.80) X10*6/uL Hgb 16.3 (14.0-18.0) g/dl Hct 48.5 (42.0-52.0) % MCV 83.5 (80.0-98.0) fL MCH 28.1 (27.0-33.0) pg MCHC 33.6 (31.0-36.0) g/dl RDW 12.6 (11.0-16.0) % Plt Count 348 (160-400) X10*3/uL MPV 10.4 (9.4-12.4) fL Immature Gran % (Auto) 0.7 H (0.0-0.4) % Neut % (Auto) 46.5 (45-73) % Lymph % (Auto) 40.9 H (20-40) % Tyrrell % (Auto) 7.6 (2-11) % Eos % (Auto) 3.3 (0-4) % Baso % (Auto) 1.0 (0-2) % Lymph # (Auto) 4.9 (1.2-4.9) X10*3/uL Tyrrell # (Auto) 0.9 (0.1-1.2) X10*3/uL Eos # (Auto) 0.4 (0.0-0.4) X10*3/uL Baso # (Auto) 0.1 (0.0-0.2) X10*3/uL Abs Immat Gran (auto) 0.08 H (0.00-0.03) X10*3/uL Absolute Neuts (auto) 5.6 (2.0-8.3) x10*3/uL Absolute Nucleated RBC 0.000 (0.0-0.012) X10*3/uL Nucleated RBC % (auto) 0.0 (0.0-0.2) /100WBC Sodium 137 (135-145) mmol/L Potassium 4.2 (3.3-5.1) mmol/L Chloride 103 (96-108) mmol/L Carbon Dioxide 23 (22-29) mmol/L Anion Gap 15 (12-20) BUN 18 H (9-16) mg/dL Creatinine 0.80 (0.5-1.4) mg/dL Estim Creat Clear Calc 71.1 Estimated GFR > 60 Random Glucose 216 H (60-115) mg/dL Calcium 10.2 D (8.4-10.2) mg/dL Total Bilirubin 1.0 (0.0-1.0) mg/dL AST 16 (5-37) U/L ALT 26 (0-40) U/L Alkaline Phosphatase 83 (39-117) U/L Total Protein 7.6 (6.5-8.0) g/dL Albumin 4.4 (3.5-5.0) g/dL Urine Color Yellow Urine Appearance Clear Urine pH 5.5 (5.0-9.0) Ur Specific [place] 1.025 (1.005-1.025) Urine Protein Negative (Neg-Trace) mg/dL Urine Glucose (UA) 250 H (Negative) mg/dL Urine Ketones Negative (Negative) mg/dL Urine Blood Negative (Negative) Urine Nitrite Negative (Negative) Ur Leukocyte Esterase Negative (Negative) Independent Interpretation I performed an independent interpretation of an: CT Scan Interpretation: My interpretation is in agreement with the radiologist's impression of this imaging study. EXAMINATION: CT ABDOMEN AND PELVIS WITH CONTRAST? CLINICAL INFORMATION: Right lower quadrant pain? COMPARISON: Previous CT of the abdomen and pelvis most recent March 2020 TECHNIQUE: Multidetector volumetric images were obtained from the superior aspect of the liver through the pubic symphysis following administration 85 mL of Omnipaque 350 intravenous contrast. Sagittal and coronal reformatted images were obtained on the technologist's workstation.? Oral contrast: Yes This CT examination was performed using dose optimization techniques as appropriate, variously including the following: *Automated exposure control *Adjustment of mA and/or kV according to patient size (this includes techniques or standardized protocols for targeted exams where dose is matched to indication/reason for exam; i.e. extremities or head) *Use of iterative reconstruction technique DLP: 428 mGy-cm FINDINGS: LUNG BASES: The visualized lung bases are unremarkable.? LIVER, GALLBLADDER, AND BILIARY TREE: The liver slightly low in attenuation suggestive of mild fatty infiltration. The liver is otherwise normal. No focal liver lesion or biliary duct dilatation. Question small gallstone versus gallbladder wall calcification. PANCREAS: Unremarkable.? SPLEEN: Unremarkable.? ADRENAL GLANDS: Unremarkable.? KIDNEYS AND URETERS: The kidneys are normal in size, shape, and attenuation. No hydronephrosis, hydroureter, or calculi seen. No perinephric stranding. ? BLADDER: Not optimally distended. GASTROINTESTINAL TRACT: The small and large bowel are unremarkable. The appendix is unremarkable.? ABDOMINAL WALL: No significant hernia is appreciated.? LYMPH NODES: Small, small bowel mesentery lymph nodes and mild adjacent fat stranding. This is similar to previous exam. VASCULAR: Unremarkable. PELVIC VISCERA: Unremarkable.? OSSEOUS STRUCTURES: Mild degenerative changes. CT/CT abdomen pelvis w IV con IMPRESSION: No acute findings. Normal-appearing appendix. Question small gallstone versus gallbladder wall calcification. ? Fleischner guidelines were followed. Dictated By: Asuncion Cruz MD Signed By: Electronically signed by Asuncion Cruz MD 09/29/22 9682 Radiology Impression Discussion of test interpretation with radiology: I have reviewed the radiologist's reading. Discharge Plan Discharge Clinical Impression: Abdominal pain Patient Disposition: Home, Self-Care Instructions: Abdominal Pain (ED) Additional Instructions: Follow up with your primary care provider. Return to the emergency department immediately if your symptoms worsen or if you develop any dizziness, shortness of breath, difficulty breathing, chest pain, blurry vision, loss of vision, nausea, vomiting, abdominal pain, fever, chills, back pain, or any other complaints. Eddy un seguimiento con garrido proveedor de atenci?n primaria. Regrese al departamento de emergencias de inmediato si fernando s?ntomas empeoran o si presenta mareos, falta de aire, dificultad para respirar, dolor de pecho, visi?n borrosa, p?rdida de la visi?n, n?useas, v?mitos, dolor abdominal, fiebre, escalofr?os, dolor de espalda o cualquier otras quejas. Prescriptions: No Action fluticasone propion-salmeterol [Advair Diskus] 250-50 mcg/dose Blister With Device 1 inh INHALATION BID atorvastatin 80 mg Tablet 80 mg PO BEDTIME metformin 1,000 mg Tablet 1,000 mg PO QPM docusate sodium 100 mg Capsule 100 mg PO DAILY omeprazole 20 mg Capsule,Delayed Release(Dr/Ec) 20 mg PO BID lisinopril-hydrochlorothiazide 20-25 mg Tablet 1 tab PO DAILY allopurinol 300 mg Tablet 300 mg PO DAILY aspirin 81 mg Tablet 81 mg PO DAILY loratadine 10 mg Tablet 10 mg PO DAILY insulin detemir U-100 100 unit/mL (3 mL) Insulin Pen 6 unit SUBCUT BID naproxen [Naprosyn] 500 mg tablet 500 mg PO BID Qty: 20 0RF tamsulosin [Flomax] 0.4 mg capsule 0.4 mg PO DAILY Qty: 10 0RF fluticasone propionate 50 mcg/actuation spray,suspension 2 spray intranasal DAILY PRN albuterol sulfate 90 mcg/actuation HFA aerosol inhaler inhalation amlodipine 10 mg tablet 10 mg PO QAM finasteride 5 mg tablet 5 mg PO DAILY cholecalciferol (vitamin D3) 50 mcg (2,000 unit) capsule 50 mcg PO QAM Referrals: Tayler Belcher MD [Primary Care Provider] - Stand Alone Forms: Work/School Release Print Language: Turkmen
[2022-09-29 12:20] LABS: MANUAL DIFF FLAG NO
[2022-09-29 12:22] LABS: Basophils Absolute Auto 0.1 X10*3/uL (0.0-0.2); Eosinophils Absolute Auto 0.4 X10*3/uL (0.0-0.4); Eosinophils Percent Auto 3.3 % (0-4); Hematocrit 48.5 % (42.0-52.0); Hemoglobin 16.3 g/dl (14.0-18.0); Imm Gran Abs Auto 0.08 X10*3/uL (0.00-0.03); Imm Gran Pct Auto 0.7 % (0.0-0.4); Lymphocytes Absolute Auto 4.9 X10*3/uL (1.2-4.9); Lymphocytes Percent Auto 40.9 % (20-40); Mean Corpuscular HGB Conc 33.6 g/dl (31.0-36.0); Mean Corpuscular Hemoglobin 28.1 pg (27.0-33.0); Mean Corpuscular Volume 83.5 fL (80.0-98.0); Mean Platelet Volume 10.4 fL (9.4-12.4); Monocytes Absolute Auto 0.9 X10*3/uL (0.1-1.2); Monocytes Percent Auto 7.6 % (2-11); Neutrophils Absolute Auto 5.6 x10*3/uL (2.0-8.3); Neutrophils Percent Auto 46.5 % (45-73); Platelet Count 348 X10*3/uL (160-400); Red Blood Count 5.81 X10*6/uL (4.60-5.80); Red Cell Distribution Width 12.6 % (11.0-16.0)
[2022-09-29 12:44] LABS: Alanine Aminotransferase 26 U/L (0-40); Albumin Level 4.4 g/dL (3.5-5.0); Alkaline Phosphatase 83 U/L (39-117); Anion Gap 15 (12-20); Aspartate Amino Transferase 16 U/L (5-37); Blood Urea Nitrogen 18 mg/dL (9-16); Calcium 10.2 mg/dL (8.4-10.2); Carbon Dioxide 23 mmol/L (22-29); Chloride 103 mmol/L (96-108); Creatinine Clr Calc Pharmacy 71.1; Estimated Glomerular Filt Rate > 60; Glucose Random 216 mg/dL (60-115); Potassium 4.2 mmol/L (3.3-5.1); Sodium 137 mmol/L (135-145); Total Protein 7.6 g/dL (6.5-8.0)
[2022-09-29 13:55] LABS: Appearance Urine Clear; Color Urine Yellow; Glucose Urine UA 250 mg/dL (Negative); Leukocyte Esterase Urine Negative (Negative); Nitrite Urine Negative (Negative); PH 5.5 (5.0-9.0); Specific Gravity - Urine 1.025 (1.005-1.025); Urine Blood Negative (Negative); Urine Ketones Negative (Negative); Urine Protein Negative (Neg-Trace)
[2022-09-29 14:17] VITALS: BP 122/78; PULSE 55; RESP 18; TEMP 36.6; O2SAT 98
--- NOTE | 2022-09-29 14:33 | PC.NURSE ---
pt to radiology
[2022-09-29] MEDS: iohexoL 350 MG/ML 100 ML INFUS..BTL IV (14:48)
== END 2022-09-29 17:12 | disposition home or self-care (01) ==
PROVIDERS: Registered Nurse Emergency; Emergency Provider Emergency Medicine; PCP Internal Medicine
DX: R10.31 Right lower quadrant pain (principal); Z79.899 Other long term (current) drug therapy
CPT/HCPCS: 36415; 74177; 80053; 81003; 85025; 99283; 99284; Q9967

== ENCOUNTER 2022-10-06 09:11 | Emergency (ER) | payer OTHER, MEDICAID, SELFPAY ==
[2022-10-06 09:13] VITALS: BP 140/82; PULSE 66; RESP 16; TEMP 36.4; O2SAT 95; BMI 28.3
--- NOTE | 2022-10-06 09:19 | ED.EXTPRO ---
HPI - Extremity Problem General Chief complaint: Extremity Problem Stated complaint: R knee pain Time Seen by Provider: 10/06/22 09:16 Source: patient and floorworker Mode of arrival: ambulatory Limitations: language barrier History of Present Illness HPI Narrative: This is a 67-year-old male with a history of diabetes, hypertension, hyperlipidemia, asthma who presents to the ER with complaints of atraumatic right knee pain for 2 weeks. Patient denies any redness, swelling, fevers, chills, numbness or tingling. No calf pain or swelling. Patient is taking Motrin at home with continued symptoms. Related Data Home Medications Medication Instructions Recorded Confirmed allopurinol 300 mg tablet 300 mg PO DAILY 01/16/20 02/03/21 aspirin 81 mg tablet 81 mg PO DAILY 01/16/20 02/03/21 atorvastatin 80 mg tablet 80 mg PO BEDTIME 01/16/20 02/03/21 docusate sodium 100 mg capsule 100 mg PO DAILY 01/16/20 02/03/21 fluticasone 250 mcg-salmeterol 50 1 inh inhalation BID 01/16/20 02/03/21 mcg/dose blistr powdr for inhalation (Advair Diskus) insulin detemir U-100 100 unit/mL 6 unit subcut BID 01/16/20 02/03/21 (3 mL) subcutaneous pen lisinopril 20 1 tab PO DAILY 01/16/20 02/03/21 mg-hydrochlorothiazide 25 mg tablet loratadine 10 mg tablet 10 mg PO DAILY 01/16/20 02/03/21 metformin 1,000 mg tablet 1,000 mg PO QPM 01/16/20 02/03/21 omeprazole 20 mg capsule,delayed 20 mg PO BID 01/16/20 02/03/21 release albuterol sulfate 90 mcg/actuation inhalation 04/11/20 02/03/21 aerosol inhaler fluticasone propionate 50 2 spray intranasal DAILY PRN 04/11/20 02/03/21 mcg/actuation nasal spray,suspension amlodipine 10 mg tablet 10 mg PO QAM 08/21/21 cholecalciferol (vitamin D3) 50 50 mcg PO QAM 08/21/21 mcg (2,000 unit) capsule finasteride 5 mg tablet 5 mg PO DAILY 08/21/21 Previous Rx's Medication Instructions Recorded naproxen 500 mg tablet (Naprosyn) 500 mg PO BID #20 tabs 03/06/20 tamsulosin 0.4 mg capsule (Flomax) 0.4 mg PO DAILY #10 caps 03/06/20 diclofenac sodium 1 % topical gel 2 g topical QID #100 grams 10/06/22 (Voltaren Arthritis Pain) naproxen 500 mg tablet 500 mg PO BID PRN pain #30 tabs 10/06/22 Allergies Allergy/AdvReac Type Severity Reaction Status Date / Time oxycodone [From PERCOCET] Allergy Intermediate ITCHING, Verified 09/29/22 12:03 itch mercury spill clean-up kit Allergy Unknown Unknown Uncoded 09/29/22 12:03 Review of Systems Review of Systems: Yes all other systems are reviewed and are negative Constitutional: Constitutional: Reports no additional constitutional complaints, Denies body ache(s), Denies chills, Denies fever(s), Denies headache(s) and Denies weakness Eyes: Eyes: Reports no additional eye complaints and Denies change in vision ENT: Reports system reviewed and no additional complaints, except as documented, Denies dizziness, Denies headache(s), Denies nasal congestion, Denies nasal discharge and Denies neck pain Cardiovascular: Cardiovascular: Reports no additional cardiovascular complaints, Denies chest pain, Denies leg edema and Denies dyspnea Respiratory: Respiratory: Reports no additional respiratory complaints, Denies cough and Denies dyspnea Gastrointestinal: Gastrointestinal: Reports no additional gastrointestinal complaints, Denies abdominal pain, Denies diarrhea, Denies nausea and Denies vomiting Genitourinary: Genitourinary: Denies urinary incontinence Musculoskeletal: Musculoskeletal: Reports no additional musculoskeletal complaints, Denies back pain, Reports arthralgias, Denies joint swelling, Denies limited range of motion, Denies neck pain, Denies numbness and Denies tingling Integumentary/Breasts: Skin/Breast: Reports system reviewed and no additional complaints, except as docu and Denies rash Neurologic: Reports system reviewed and no additional complaints, except as documented, Denies Abnormal speech present, Denies dizziness, Denies headache(s), Denies numbness, Denies tingling and Denies weakness PMFSH Past Medical History Attestation statement: The following information was validated with the patient. Source: old records reviewed and nursing notes reviewed Medical History Asthma Back pain Diabetes Diverticulosis Elevated cholesterol GERD (gastroesophageal reflux disease) GERD without esophagitis Hemorrhoids Hiatal hernia without gangrene or obstruction HTN (hypertension) Hx of renal calculi Sleep apnea Thrombosed external hemorrhoid Surgical History H/O colonoscopy History of esophagogastroduodenoscopy (EGD) Family History Family History Father History of cancer of stomach Mother Hx of colon cancer, stage IV Sister Hx of breast cancer Social History Social History Household Members: Spouse and Children Alcohol intake: never Patient Tobacco Use Status: Never used Tobacco Smoked in Last 30 Days: No Use of substances other than those prescribed or required for medical reasons: No Advance Directives: No Advance Directives Information Provided: Yes Physical Exam Vital Signs: Vital Signs: Last Vital Signs Temp 97.6 F 10/06/22 09:13 Pulse 66 10/06/22 09:13 Resp 16 10/06/22 09:13 BP 140/82 H 10/06/22 09:13 Pulse Ox 95 10/06/22 09:13 O2 Del Method Room Air 10/06/22 09:13 BMI result Body Mass Index 28.3 Const: General: cooperative, healthy appearing, comfortable and no acute distress Orientation/consciousness: patient oriented x3 Limitations: no limitations HEENT: Head: Yes normal to inspection Ears: hearing grossly normal bilaterally General nose exam: Normal external nose present Face and sinus: Yes normal facial exam Mouth: Normal oral and palatal mucosa present Throat: Yes posterior oropharynx normal Eyes: General: appearance normal, both eyes and all related structures Pupils: Equal, round and reactive pupils present Neck: Neck: Yes normal visual inspection Chest: Chest palpation & inspection: normal inspection of the chest Resp: Effort & Inspection: normal respiratory effort Auscultation: clear to auscultation bilaterally Cardio: Rate: regular rate Rhythm: regular rhythm Peripheral pulses: Peripheral pulses 2+ throughout GI: Inspection: Yes normal to inspection Palpation (GI): Soft to palpation and nontender Auscultation: normal bowel sounds Back/Spine/Pelvis: Thoracic/Lumbar Spine: thoracic and lumbar spine normal to inspection Skin: General skin exam: no rashes or lesions noted Neuro: General: patient oriented x3, no focal motor deficits and normal sensation to monofilament Cranial nerves: Yes Equal, round and reactive pupils present Cognition (Neuro): normal cognition Speech: No Abnormal speech present Gait exam (Neuro): Normal gait present Motor exam (neuro): 5/5 motor strength present throughout Extrem: Other: On exam there is tenderness over the right anterior knee. There is no posterior knee pain. There is no calf pain or tenderness. Are there are normal DP and PT pulses distally. Sensation is intact distally. There is full range of motion of the right knee. Those noted ligamental laxity. There is no redness, swelling or warmth noted General: Yes normal to inspection Course Course Course Narrative: X-ray shows degenerative changes. Patient will be sent home with NSAID, topical Voltaren with recommendations to follow-up with primary care for continued symptoms and continue supportive care at home in the meantime. Reviewed worrisome signs and symptoms of when to return to the emergency room. Comfortable plan for discharge home. Medications Administered Discontinued Medications Generic Name Dose Route Start Last Admin Trade Name Freq PRN Reason Stop Dose Admin Ketorolac Tromethamine 30 mg 10/06/22 09:31 10/06/22 09:37 Ketorolac Tromethamine 30 Mg/Ml Vial IM 10/06/22 09:32 30 mg ONCE ONE Administration Medical Decision Making Medical Decision Making [facility] Narrative: 67-year-old male here with atraumatic right knee pain for 2 weeks Will check x-rays Differential Diagnosis Differential Diagnoses: The differential diagnosis associated with the presentation includes Arthritis Low concern for septic joint with full range of motion Low concern for DVT with no calf pain or swelling or posterior knee pain Independent Interpretation I performed an independent interpretation of an: Plain X-Ray Interpretation: I independently reviewed the x-ray and agree with the rad report Radiology Impression Discussion of test interpretation with radiology: I have reviewed the radiologist's reading. Radiologist Impression: [address] [address] XRay Report Signed Patient: Brandon White MR#: [id number] : 1955 Acct:[id number] Age/Sex: 67 / M ADM Date: 10/06/22 Loc: HO.ED Attending Dr: Ordering Physician: Alejandra Hammond NP Date of Service: 10/06/22 Procedure(s): XR knee RT 3V Accession Number(s): [id number] cc: Alejandra Hammond NP~ EXAMINATION: XR KNEE, RIGHT? CLINICAL INFORMATION: Pain. No injury.? COMPARISON: Right knee x-rays September 21, 2022? TECHNIQUE: 4 views of the right knee. FINDINGS: No fracture or dislocation. No suprapatellar joint effusion. Mildly decreased patellofemoral joint space. Medial and lateral compartments are maintained. No focal soft tissue swelling the anterior knee. ? XR/XR knee RT 3V IMPRESSION: Mild degenerative changes of the right knee. ? Tests considered The following testing was considered but not selected: There is no posterior knee pain, calf pain or swelling to suggest need for ultrasound to rule out DVT Prescription Management I considered prescription management with: Pain Medication Discharge Plan Discharge Clinical Impression: Knee osteoarthritis Patient Disposition: Home, Self-Care Instructions: Osteoarthritis (ED) Additional Instructions: La radiograf?a de garrido rodilla muestra artritis. Calor o hielo. Estiramiento suave. Seguimiento con el m?dico de atenci?n primaria para los s?ntomas continuos, ya que puede beneficiarse de clarissa derivaci?n a un ortop?dico para clarissa inyecci?n de cortisona The x-ray of your knee shows arthritis. Heat or ice. Gentle stretching. Follow-up with primary care doctor for continued symptoms as he may benefit from a referral to an orthopedic for a cortisone injection Prescriptions: New naproxen 500 mg tablet 500 mg PO BID PRN (Reason: pain) Qty: 30 0RF diclofenac sodium [Voltaren Arthritis Pain] 1 % gel 2 g topical QID Qty: 100 0RF Rx Instructions: apply to single knee No Action fluticasone propion-salmeterol [Advair Diskus] 250-50 mcg/dose Blister With Device 1 inh INHALATION BID atorvastatin 80 mg Tablet 80 mg PO BEDTIME metformin 1,000 mg Tablet 1,000 mg PO QPM docusate sodium 100 mg Capsule 100 mg PO DAILY omeprazole 20 mg Capsule,Delayed Release(Dr/Ec) 20 mg PO BID lisinopril-hydrochlorothiazide 20-25 mg Tablet 1 tab PO DAILY allopurinol 300 mg Tablet 300 mg PO DAILY aspirin 81 mg Tablet 81 mg PO DAILY loratadine 10 mg Tablet 10 mg PO DAILY insulin detemir U-100 100 unit/mL (3 mL) Insulin Pen 6 unit SUBCUT BID naproxen [Naprosyn] 500 mg tablet 500 mg PO BID Qty: 20 0RF tamsulosin [Flomax] 0.4 mg capsule 0.4 mg PO DAILY Qty: 10 0RF fluticasone propionate 50 mcg/actuation spray,suspension 2 spray intranasal DAILY PRN albuterol sulfate 90 mcg/actuation HFA aerosol inhaler inhalation amlodipine 10 mg tablet 10 mg PO QAM finasteride 5 mg tablet 5 mg PO DAILY cholecalciferol (vitamin D3) 50 mcg (2,000 unit) capsule 50 mcg PO QAM Referrals: Tayler Belcher MD [Primary Care Provider] - 1 week (por s?ntomas continuos.) Print Language: Bahraini
--- NOTE | 2022-10-06 09:44 | PC.NURSE ---
Patient comes in with right knee pain for the past 2 weeks. Patient denies any injury to the area. Right knee not red or swollen at this time.
[2022-10-06 10:18] VITALS: BP 135/102; PULSE 61; RESP 16; O2SAT 97
== END 2022-10-06 10:20 | disposition home or self-care (01) ==
PROVIDERS: Emergency Provider Emergency Medicine Emergency Medical Services; PCP Internal Medicine
DX: M17.11 Unilateral primary osteoarthritis, right knee (principal); M25.561 Pain in right knee; E11.9 Type 2 diabetes mellitus without complications; I10 Essential (primary) hypertension; J45.909 Unspecified asthma, uncomplicated; Z79.899 Other long term (current) drug therapy
CPT/HCPCS: 73562; 96372; 99284; J1885

== ENCOUNTER 2022-11-16 08:42 | Outpatient (REF) | payer OTHER, SELFPAY ==
[2022-11-16 12:49] LABS: Cholesterol 168 mg/dL; HDL Cholesterol 33 mg/dL; LDL Cholesterol Calculated 104 mg/dl; Triglycerides 159 mg/dL
[2022-11-16 18:02] LABS: Reflex LDLD? No
== END 2022-11-16 08:43 | disposition home or self-care (01) ==
LOC: HO.HHCL 08:42
PROVIDERS: Visit Provider Internal Medicine
DX: E11.65 Type 2 diabetes mellitus with hyperglycemia (principal); M1A.00X0 Idiopathic chronic gout, unspecified site, without tophus (tophi); Z79.4 Long term (current) use of insulin
CPT/HCPCS: 36415; 80061

== ENCOUNTER 2023-02-18 07:43 | Outpatient (AMB) | payer OTHER, SELFPAY ==
--- NOTE | 2023-02-18 07:51 | A.OFFVIS_ITS ---
Intake Vital Signs 02/18/23 07:55 Height 5 ft 3 in Weight 155 lb BMI 27.5 BP 91/58 L Blood Pressure Location Lt brachial Position Sitting Pulse 82 Intake Visit Reasons: Pre Colonoscopy Intake Note: Patient follow up for pre colonoscopy screening. Patient cc: acid reflex and denies any other GI issues. Automotive Refinisher Required: Yes Automotive Refinisher Name: Tayler [id number] Accompanied by: Self / Same As Patient Allergies oxycodone [From PERCOCET] Allergy (Intermediate, Verified 02/18/23 07:52) ITCHING, itch mercury spill clean-up kit Allergy (Unknown, Uncoded 09/29/22 12:03) Unknown Medication List - Last Reconciled 02/18/23 by Gerry Moraes MD albuterol sulfate 90 mcg/actuation inhalation allopurinol 300 mg PO DAILY amlodipine 10 mg PO QAM aspirin 81 mg PO DAILY atorvastatin 80 mg PO BEDTIME cholecalciferol (vitamin D3) 50 mcg PO QAM diclofenac sodium 1% (Voltaren Arthritis Pain) 2 grams topical QID docusate sodium 100 mg PO DAILY finasteride 5 mg PO DAILY fluticasone propion-salmeterol 250-50 mcg/dose (Advair Diskus) 1 inh inhalation BID fluticasone propionate 50 mcg/actuation 2 sprays intranasal DAILY PRN insulin detemir U-100 6 units subcut BID lisinopril-hydrochlorothiazide 20-25 mg 1 tab PO DAILY loratadine 10 mg PO DAILY metformin 1,000 mg PO QPM naproxen 500 mg PO BID PRN omeprazole 20 mg PO BID sildenafil (Viagra) 100 mg PO DAILY PRN tamsulosin (Flomax) 0.4 mg PO DAILY HPI Pre Colonoscopy HPI Details GI CLINIC VISIT FOR THIS 67-YEAR-OLD SYRIAC-SPEAKING MALE FOR FOLLOW- UP OF GERD AND COLON CANCER SCREENING. [facility] LABS:?10/2018 relatively unremarkable CBC, normal renal and hepatic panels, elevated uric acid. ENDOSCOPIC STUDIES:?01/23/20 EGD AND COLONOSCOPY SHOWED: ESOPHAGUS: GE junction at 34 cms, small hiatal hernia 34 to 36 cms. No esophagitis.? Irregular Z line with ? 1 cms tongue of possible Barretts - biopsied. STOMACH: Minimal gastritis. Colonoscopy Findings: Four small polyps removed Moderate diverticulosis seen in the left colon Large hemorrhoids on retroflexed exam. Plan: Repeat Colonoscopy interval based on path results - in 3-5 years if polyps are adenomatous and 10 years if polyps are hyperplastic. Above findings were reviewed with the patient and colon polyps and diverticulosis handouts were given in the discharge area BIOPSIES SHOWED: A.? Stomach, antrum, biopsy:? Antral-type mucosa with mild chronic inactive inflammation; no Helicobacter organisms seen. B.? Esophagus, distal, biopsy: - Cardiac-type mucosa with moderate application chemist melo active inflammation; no intestinal metaplasia seen. - Chronic esophagitis. C.? Cecum, polypectomy:? Sessile serrated polyp. D.? Colon, ascending, polypectomy:? Tubular adenoma; no high grade dysplasia or carcinoma seen. E.? Colon, transverse, polypectomy:? Tubular adenoma; no high grade dysplasia or carcinoma seen. F.? Colon, sigmoid, polypectomy:? Tubular adenoma; no high grade dysplasia or carcinoma seen. TODAY'S VISIT: Video RETURNED TELEPHONE EQUIPMENT APPRAISER, (Tayler # [id number]) Having terrible heartburn - happens when he is sleeping and notes regurgitation of water in his mouth - 3 times a week. Denies coughing or SOB. Can have heartburn during the day as well. Stopped taking pizza, spaghetti, hot dogs. Constipation is better - has a BM once a day - takes a little red pill every night Takes Naproxen once a day for ? indication. PAST VISIT: Continues to have bad heartburn - mostly at night. Does not eat after 4 pm and goes to sleep at 7 pm. EGD and colonoscopy findings and biopsy results were reviewed with the patient. This patient has had gastroesophageal reflux disease for a long time, he feels his gastroesophageal reflux disease is well controlled on omeprazole b.i.d., no complaints of acid brash, dyspepsia or abdominal discomfort. Complains of chronic constipation - has been straining and hemorrhoids have come out.. Taking medication for constipation which is not helping Admits FHX CRC- mom and dad CRC ? Denies personal history polyps ? Admits other cancers in family- both sisters had CRC ? Denies ETOH use ? Denies illicit substance use ? Denies ciggarrette use ? Denies / exposure to HIV, Hep A,B,C or tuberculsis ? Admits cardiac issues- HTN- controlled ? Admits respiratory issues- LILIANA- uses CPAP ? Constipation- Patient has had issues with constipation and blood on tissue in the past- which is chronic in nature. He notes that he has been using colace and miralax if needed and denies this being a current preoblem. ? GERD- States that the Omeprazole is working well for his heartburn [facility] Medical History Asthma Back pain Diabetes Diverticulosis Elevated cholesterol GERD (gastroesophageal reflux disease) GERD without esophagitis Hemorrhoids Hiatal hernia without gangrene or obstruction HTN (hypertension) Hx of renal calculi Sleep apnea Thrombosed external hemorrhoid Surgical History History of esophagogastroduodenoscopy (EGD) H/O colonoscopy Family History Father History of cancer of stomach Mother Hx of colon cancer, stage IV Sister Hx of breast cancer Social History Household Members: Spouse and Children Alcohol intake: never Patient Tobacco Use Status: Never used Tobacco Review of Systems Const All systems reviewed & are unremarkable except as noted in HPI and below Physical Exam Vital Signs: Last Vital Signs Pulse 82 02/18/23 07:55 BP 91/58 L 02/18/23 07:55 BMI result Body Mass Index 27.5 Const General: healthy appearing and no acute distress Nutritional Appearance: overweight Orientation/consciousness: patient oriented x3 Limitations: no limitations and language barrier HEENT Head: Yes normal to inspection Ears: hearing grossly normal bilaterally Eyes Sclerae: sclerae normal Pupils: Equal, round and reactive pupils present Neck Neck: Yes normal visual inspection Chest Chest palpation & inspection: normal inspection of the chest Resp Effort & Inspection: normal respiratory effort Auscultation: clear to auscultation bilaterally Cardio Palpation: normal PMI Rate: regular rate Rhythm: regular rhythm Heart sounds: S1 normal heart sound present, S2 normal heart sound present and no murmurs GI Palpation (GI): Soft to palpation, nontender and No hepatosplenomegaly present Auscultation: normal bowel sounds Rectal Exam - Male: Yes deferred Skin General skin exam: no rashes or lesions noted Neuro General: patient oriented x3, gait normal and moves all extremities Cranial nerves: Yes Equal, round and reactive pupils present Psych Appearance: grossly normal Mental Status: mental status grossly normal Assessment & Plan Assessment & Plan (1) History of colon polyps: Comment: 01/22 Four small adenomatous polyps were removed during colonoscopy, diverticulosis and large hemorrhoids were detected. Repeat colonoscopy is advised in 3 years. Code(s): Z86.010 - Personal history of colonic polyps (2) Chronic constipation: Code(s): K59.09 - Other constipation (3) Hemorrhoids: Code(s): K64.9 - Unspecified hemorrhoids (4) Diverticulosis: Code(s): K57.90 - Diverticulosis of intestine, part unspecified, without perforation or abscess without bleeding (5) Hiatal hernia without gangrene or obstruction: Code(s): K44.9 - Diaphragmatic hernia without obstruction or gangrene (6) GERD without esophagitis: Code(s): K21.9 - Gastro-esophageal reflux disease without esophagitis (7) Thrombosed external hemorrhoid: Code(s): K64.5 - Perianal venous thrombosis Plan 67 year old St [place]ian speaking male followed in GI with GERD, chronic constipation and diverticulosis. 01/23/20 EGD showed a small hiatal hernia and minimal gastritis. Four small adenomatous polyps were removed during same-day colonoscopy.? Moderate diverticulosis and large hemorrhoids were detected. Repeat colonoscopy is advised in 3 years. Patient was advised to start taking senna and psyllium for constipation and hemorrhoids. 02/18/23 Having terrible heartburn - happens when he is sleeping and notes regurgitation of water in his mouth - 3 times a week. Denies coughing or SOB. Can have heartburn during the day as well. Stopped taking pizza, spaghetti, hot dogs. Pt advised to schedule an EGD (worsening GERD symptoms) and a colonoscopy (Surveillance for colon polyps) FU in 6 months. Medications: New bisacodyl (Dulcolax (bisacodyl)) Take 4 tablets at 12 pm the day before colonoscopy appointment 10 mg (2 x 5 mg) PO ONCE 2 tabs 0RF colon prep 1 day polyethylene glycol 3350 (Miralax) Mix Miralax with 64 oz(8 cups) of Crystal light. Take 2 tablets of Dulcolax qt 12 pm. Wait to have your 1st bowel movement, then begin drinking Miralax. Drink a glass of Miralax every 10-15 minutes until you are finished. You will drink at least another 4 cups of clear liquid of your choice over the next 2 hours. Please drink as many clear liquids as possible You may have clear liquids up to four hours before your procedure 17 grams PO DAILY 238 grams 0RF 1 day Changed From omeprazole 20 mg PO BID K21.9 - Gastro-esophageal reflux disease without esophagitis, K44.9 - Diaphragmatic hernia without obstruction or gangrene To omeprazole 20 mg PO BID 180 caps 1RF 90 days K21.9 - Gastro-esophageal reflux disease without esophagitis, K44.9 - Diaphragmatic hernia without obstruction or gangrene Coding Level of Care Code Est Pt Level 4 (10247) Diagnoses History of colon polyps Z86.010 Chronic constipation K59.09 Hemorrhoids K64.9 Diverticulosis K57.90 Hiatal hernia without gangrene or obstruction K44.9 GERD without esophagitis K21.9 Thrombosed external hemorrhoid K64.5 Time Spent (min) 23
[2023-02-18 07:55] VITALS: BP 91/58; PULSE 82; BMI 27.5
== END 2023-02-18 08:20 | disposition home or self-care (01) ==
PROVIDERS: PCP Internal Medicine; Visit Provider Internal Medicine Gastroenterology
DX: K21.9 Gastro-esophageal reflux disease without esophagitis (principal); K59.09 Other constipation; Z86.010 Personal history of colon polyps; K64.9 Unspecified hemorrhoids; K57.90 Diverticulosis of intestine, part unspecified, without perforation or abscess without bleeding; K44.9 Diaphragmatic hernia without obstruction or gangrene; K64.5 Perianal venous thrombosis
CPT/HCPCS: 99499

== ENCOUNTER → 2023-02-18 07:43 | Outpatient (BNVA) | payer OTHER, SELFPAY | PROVIDERS: PCP Internal Medicine; Visit Provider Internal Medicine Gastroenterology ==

== ENCOUNTER 2023-09-24 08:01 | Outpatient (REF) | payer OTHER, SELFPAY ==
[2023-09-24 12:07] LABS: Alanine Aminotransferase 24 U/L (0-40); Albumin Level 4.2 g/dL (3.5-5.0); Alkaline Phosphatase 79 U/L (39-117); Anion Gap 11 (12-20); Aspartate Amino Transferase 18 U/L (5-37); Bilirubin Total 0.4 mg/dL (0.0-1.0); Blood Urea Nitrogen 32 mg/dL (9-16); Calcium 9.4 mg/dL (8.4-10.2); Carbon Dioxide 26 mmol/L (22-29); Chloride 104 mmol/L (96-108); Cholesterol 196 mg/dL (<200); Estimated Glomerular Filt Rate > 60; Glucose Random 248 mg/dL (60-115); HDL Cholesterol 37 mg/dL (>40); LDL Cholesterol Calculated 115 mg/dL (<100); Potassium 4.1 mmol/L (3.3-5.1); Sodium 137 mmol/L (135-145); Total Protein 7.3 g/dL (6.5-8.0); Triglycerides 220 mg/dL (<150)
[2023-09-24 12:09] LABS: Reflex LDLD? No; TSH reflex Free T4 1.65 uIU/mL (0.32-4.0); Vitamin D 25-OH Total 46.7 ng/mL (>30)
[2023-09-24 12:24] LABS: Creatinine Urine 161.28 mg/dL; Microalbum/Creatinine Ratio Ur 15.5 ug/mg cr (<30)
[2023-09-27 08:43] LABS: HBS Num1 78.63 mIU/mL (0-7.99); HBc Num1 0.09 S/CO (0.00-0.79); HBsAGNum1 0.28 S/CO (0.00-0.99); Hepatitis A Antibody IgM 0.18 Index (0-0.79); Hepatitis B Core Antibody Nonreactive (Nonreactive); Hepatitis B Surface Antigen Negative (Negative); ~HepC Num1 0.08 S/CO (0.00-0.79); ~Hepatitis A Antibody IgM Nonreactive (Nonreactive); ~Hepatitis B Surface Antibody REACTIVE (Nonreactive); ~Hepatitis C Antibody Nonreactive (Nonreactive)
== END 2023-09-24 08:02 | disposition home or self-care (01) ==
LOC: HO.HHCL 08:01
PROVIDERS: Visit Provider Internal Medicine
DX: Z00.00 Encounter for general adult medical examination without abnormal findings (principal); E11.65 Type 2 diabetes mellitus with hyperglycemia; Z79.4 Long term (current) use of insulin
CPT/HCPCS: 36415; 80053; 80061; 82043; 82306; 82570; 84443; 86704; 86706; 86709; 86803; 87340

== ENCOUNTER 2024-10-30 08:07 | Outpatient (REF) | payer OTHER, SELFPAY ==
--- OUTSIDE RECORDS SUMMARY | 2024-10-30 08:16 | XMS_ITS | Encounter Summary ---
Author Organization [employer] Address [address] [place] [address] Care Team Providers Care Cooker Loader Name Role Phone Tayler Belcher MD Primary Care Provider + Lucas Badillo PharmD Unavailable [phone] Reason for Visit * Reason Onset Date Comments Appointment Request 09/24/2022 Encounter Details Date Type Department Care Team ([facility] st Contact Info) Description 09/24/2022 Telephone [facility] [address] [place], [place] [phone] Tayler Belcher MD [address] [place], [place] [phone] Appointment Request Social History Tobacco Use Types Packs/Day Years Used Date Smoking Tobacco: Never Passive Smoke Exposure: Never Smokeless Tobacco: Never Alcohol Use Standard Drinks/Week Comments Never 0 (1 standard drink = 0.6 oz pur e alcohol) Depression Answer Date Recorded Patient Health Questionnaire-2 Score 0 08/24/2022 Sex and Gender Information Value Date Recorded Sex Assigned at Male 02/02/2022 10:14 AM EDT Legal Sex Male 10:14 AM EDT Gender Identity Male 02/02/2022 10:14 AM EDT Sexual Orientation Straight 02/02/2022 10 :14 AM EDT COVID-19 Exposure Response Date Recorded In the last 10 days, have yo u been in contact with someone who was confirmed or suspected to have Coronavirus/COVID-19? No / Unsure 09/22/2022 8:39 AM EDT documented as of this encounter Miscellaneous Notes * Telephone Encounter - Kaushalmaren Elias Chacon - 09/24/2022 10:28 AM EDT Tc from pt requesting to r/s appt for OV DM on 09/25/2022 Please contact pt at [phone] Welsh Welsh Speaker documented in this encounter Plan of Treatment Upcoming Encounters Date Type Department Care Team (Late st Contact Info) Description 11/03/2024 9:00 AM EDT Office Visit [facility] [address] [place] [id number] Tayler Belcher MD [address] [place] [phone] 12/29/2024 11:00 AM EDT Medication Management [address] [phone] Lucas Badillo, PharmD [address] [place] [phone] documented as of this encounter Visit Diagnoses Not on filedocumented in this encounter Care Teams Cooker Loader Relationship Specialty Start Date End Date Tayler Belcher MD [address] [place] [phone] PCP - General Family Medicine 05/14/20 Lucas Badillo, PharmD [address] [place] [id number] Pharmacist Internal Medicine 06/29/24 documented as of this encounter
--- OUTSIDE RECORDS SUMMARY | 2024-10-30 08:16 | XMS_ITS | Clinical Summary ---
Author Organization [facility] Address [address] [place] [address] Phone Care Team Providers Care Refrigerator Repair Technician Name Role Phone Tayler Belcher MD Primary Care Provider + [phone] Allergies Active Allergy Reactions Criticality Noted Date Comments Oxycodone-Acetaminophen 02/14/2024 Medications No known medications Active Problems No known active problems Medical History Medical History Date Comments Diabetes mellitus ([facility] V24, [facility] V28) Asthma Hypertension Hyperlipidemia Social History Tobacco Use Types Packs/Day Years Used Date Smoking Tobacco: Never Smokeless Tobacco: Never Tobacco Cessation:Counseling Given: Not Answered Sex and Gender Information Value Date Recorded Sex Assigned at Male 05/04/2024 12:25 AM EST Legal Sex Male 6:16 PM EST Gender Identity Male 05/04/2024 12:25 AM EST Sexual Orientation Straight 05/04/2024 12 :25 AM EST Obstetrics History Last Filed Vital Signs Vital Sign Reading Time Taken Comments Blood Pressure 141/85 05/03/2024 11:49 PM EST Pulse 69 05/03/2024 11:49 PM EST Temperature 36.6 C (97.9 F) 05/03/2024 11:49 PM EST Respiratory Rate 19 05/03/2024 11:49 PM EST Oxygen Saturation 97% 05/03/2024 11:49 PM EST Inhaled Oxygen Concentration - - Weight 72.6 kg (160 lb) 05/03/2024 11:49 PM EST Height 160 cm (5' 3 ) 05/03/2024 11:49 PM EST Body Mass Index 28.34 05/03/2024 11:49 PM EST Plan of Treatment Health Maintenance Due Date Last Done Comments Diabetes: Annual Foot Exam 1964 Diabetes: Annual Retina Eye Exam 1964 Hepatitis A Vaccines (1 of 2 - Risk 2-dose series) 1973 RSV Immunization Adult Patients (1 - Risk 60-74 years 1-dose series) 2014 Cholesterol Screening (Lipid Panel) 03/07/2022 Colorectal Cancer Screening: Colonoscopy 03/07/2022 Falls Risk Assessment 03/07/2022 Hepatitis C Screening 03/07/2022 Medicare Annual Wellness Visit 03/07/2022 Social Influencers of Health Screening 03/07/2022 Diabetes: Annual Urine Albumin-Creatinine Ratio (uACR) 02/14/2024 Depression Screening 04/05/2024 COVID-19 Vaccine ( season) 2024 01/20/2024, 05/23/2022, 02/19/2021, Additional history exists Diabetes: Blood Sugar Control Test (HGBA1C) 10/19/2024 04/21/2024, 01/06/2024 Influenza Vaccine (#1) 2024 , 12/22/2022, 12/30/2021, Additional history exists Pneumococcal Vaccine: 50+ Years (3 of 3 - PCV20 or PCV21) 12/27/2024 12/28/2019, 12/10/1999 Diabetes: Annual GFR (Glomerular Filtration Rate) 05/03/2025 05/03/2024 Hypertension/CHF/CAD Annual BMP Blood Test 05/03/2025 05/03/2024 DTaP,Tdap,and Td Vaccines (7 - Td or Tdap) 12/16/2033 12/17/2023, 10/26/2013, 06/03/2012, Additional history exists Hepatitis B Vaccines Completed 07/04/2015, 08/30/2014, 02/26/2014 Zoster Vaccines Completed 03/27/2020, 06/04, 03/22/2015 HIB Vaccines Aged Out No longer eligi ble based on patient's age to complete this topic HPV Vaccines Aged Out No longer eligi ble based on patient's age to complete this topic IPV Vaccines Aged Out No longer eligi ble based on patient's age to complete this topic MMR Vaccines Aged Out No longer eligi ble based on patient's age to complete this topic Meningococcal ACWY Vaccine Aged Out N o longer eligible based on patient's age to complete this topic Meningococcal B Vaccine Aged Out No l onger eligible based on patient's age to complete this topic RSV Immunization Patients Under 20 months Aged Out No longer eligible based on patient's age to complete this topic Varicella Vaccines Aged Out No longer eligible based on patient's age to complete this topic Procedures Procedure Name Priority Date/Time Associated Diagnosis Comments COMPREHENSIVE METABOLIC PANEL STAT 05/03/2024 11:56 PM EST from Last 3 Months or Most Recently Relevant to Health Maintenance Results * (ABNORMAL) Comprehensive metabolic panel (05/03/2024 11:56 PM EST) Sodium 133 133 - 145 mmol/L LAB CHEMISTRY METHOD 05/04/2024 12:51 AM [facility] Potassium 3.7 3.5 - 5.5 mmol/L LAB CHEMISTRY METHOD 05/04/2024 12:51 AM [facility] Chloride 102 96 - 110 mmol/L LAB CHEMISTRY METHOD 05/04/2024 12:51 AM [facility] CO2 25 21 - 32 mmol/L LAB CHEMISTRY METHOD 05/04/2024 12:51 AM [facility] Anion Gap 6 3 - 11 LAB CHEMISTRY METHOD 05/04/2024 12:51 AM [facility] Glucose 426(HH) 70 - 100 mg/dL LAB CHEMISTRY METHOD 05/04/2024 12:51 AM [facility] BUN 19 5 - 25 mg/dL LAB CHEMISTRY METHOD 05/04/2024 12:51 AM [facility] Creatinine 0.86 0.70 - 1.30 mg/dL LAB CHEMISTRY METHOD 05/04/2024 12:51 AM [facility] eGFR 93 >=60 mL/min/1. 73m2 LAB CHEMISTRY METHOD 05/04/2024 12:51 AM [facility] Comment:Calculation based on the Chronic Kidney Disease Epidemiology Collaboration (CKD-EPI) equation refit without adjustment for race. BUN/Creatinine Ratio 22.1 LAB CHEMISTRY METHOD 05/04/2024 12:51 AM [facility] Calcium 8.3(L) 8.5 - 10.5 mg/dL LAB CHEMISTRY METHOD 05/04/2024 12:51 AM [facility] AST (SGOT) 14 10 - 42 unit/L LAB CHEMISTRY METHOD 05/04/2024 12:51 AM [facility] ALT (SGPT) 25 10 - 60 unit/L LAB CHEMISTRY METHOD 05/04/2024 12:51 AM [facility] Alkaline Phosphatase 96 42 - 121 unit/L LAB CHEMISTRY METHOD 05/04/2024 12:51 AM [facility] Total Protein 6.5 6.0 - 8.0 g/dL LAB CHEMISTRY METHOD 05/04/2024 12:51 AM [facility] Albumin 3.5 3.2 - 5.0 g/dL LAB CHEMISTRY METHOD 05/04/2024 12:51 AM [facility] Total Bilirubin 0.3 0.0 - 1.4 mg/dL LAB CHEMISTRY METHOD 05/04/2024 12:51 AM [facility] Blood Venous blood specimen / Unknown Venipuncture / Unknown 05/03/2024 11:56 PM EST 05/04/2024 12:02 AM EST [facility] LAB BLOOD ORDERABLES Final Result [facility] [address] [place] [address], from Last 3 Months or Most Recently Relevant to Health Maintenance Insurance [facility] Member Subscriber Plan / Payer (Ef fective 2023-Present) Name:Brandon White Relation to Subscriber:Self Name:Brandon White Payer ID:[id number] Group ID:[id number] Type:Not on file Address: [facility] [address] [place] [id number] Care Teams Refrigerator Repair Technician Relationship Specialty Start Date End Date Tayler Belcher MD [address] [place] [phone] PCP - General Internal Medicine 02/14/24
--- OUTSIDE RECORDS SUMMARY | 2024-10-30 08:16 | XMS_ITS | Clinical Summary ---
Author Organization [facility] Address [address] [place] [address] Care Team Providers Care Veneer Taper Name Role Phone Unavailable Primary Care Provider Unavailabl e Source Comments PLEASE NOTE, if this patient is a minor, it may be UNLAWFUL to discuss sensitive information that is contained in these records (such as FAMILY PLANNING, MENTAL HEALTH or SUBSTANCE ABUSE) with the minor patient's parent or other person without the patient's specific authorization.ROCÍO Immunizations Immunization Administration Dates Next Due Pfizer-BioNTech COVID-19 Vac cine Bivalent, (DUNN PFIZER-BIONTECH COVID-19 VACCINE BIVALENT, (DUNN CAP 05/23/2022 Social History Tobacco Use Types Packs/Day Years Used Date Smoking Tobacco: Never Assessed Sex and Gender Information Value Date Recorded Sex Assigned at Not on file Legal Sex Male 8:51 AM PST Gender Identity Not on file Sexual Orientation Not on file Plan of Treatment Health Maintenance Due Date Last Done Comments Diabetes Screening 1954 Hepatitis C Screening 1954 Lipid Screening 1954 Tobacco Screening 1955 Hypertension Screening (#1) 1972 CT Colonography 1999 Colonoscopy 1999 Colorectal Cancer Screening 1999 FIT/gFOBT 1999 Fecal DNA 1999 Flexible Sigmoidoscopy 1999 Abdominal Aortic Aneurysm Screening 2019 Falls Prevention 2019 Imm-DTaP/Tdap/Td (3 - Td or Tdap) 10/27/2023 10/26/2013, 06/03/2012, 07/18/2008, Additional history exists [id number] ( season) 2023 05/23/2022, 02/19/2021, 06/19/2020 Alcohol and Drug Screen 04/05/2024 Depression Annual Screen 04/05/2024 Imm-Influenza (#1) 2024 12/30/2021, 0 12/24/2020, 12/28/2019, Additional history exists Imm-Pneumococcal 50+ (3 of 3 - PCV20 or PCV21) 12/27/2024 12/28/2019, 12/10/1999 Imm-Zoster, Recombinant Completed 03/27/20, 07/01/2018, 03/22/2015
[2024-10-30 12:00] LABS: Alanine Aminotransferase 21 U/L (0-40); Albumin Level 4.2 g/dL (3.5-5.0); Alkaline Phosphatase 73 U/L (39-117); Anion Gap 12 (12-20); Aspartate Amino Transferase 19 U/L (5-37); Blood Urea Nitrogen 17 mg/dL (9-16); Calcium 8.5 mg/dL (8.4-10.2); Carbon Dioxide 23 mmol/L (22-29); Chloride 109 mmol/L (96-108); Cholesterol 161 mg/dL (<200); Estimated Glomerular Filt Rate > 60; HDL Cholesterol 32 mg/dL (>40); Potassium 3.9 mmol/L (3.3-5.1); Sodium 140 mmol/L (135-145); Total Protein 7.0 g/dL (6.5-8.0); Triglycerides 132 mg/dL (<150)
[2024-10-30 12:45] LABS: Microalbum/Creatinine Ratio Ur 40.4 ug/mg cr (<30)
== END 2024-10-30 08:08 | disposition home or self-care (01) ==
LOC: HO.HHCL 08:07
PROVIDERS: PCP Internal Medicine; Visit Provider Internal Medicine
DX: E11.65 Type 2 diabetes mellitus with hyperglycemia (principal); Z79.4 Long term (current) use of insulin
CPT/HCPCS: 36415; 80048; 80061; 80076; 82043; 82570